=== PATIENT | male | born 1945 | race Caucasian/White ===

== ENCOUNTER 2022-03-01 18:59 | Inpatient (IN) ==
[2022-03-01 19:58] LABS: Hemoglobin 10.7 g/dL (14.0-18.0); Mean Corpuscular Hemoglobin 31.6 pg (25-34); Mean Corpuscular Hgb Conc 34.5 g/dL (32-36); Mean Corpuscular Volume 91.4 fL (80-100); Mean Platelet Volume 10.2 fL (7.4-10.4); Platelet Count 287 K/uL (130-400); RDW Coefficient of Variation 13.4 % (11.5-14.5); RDW Standard Deviation 44.9 fL (36.4-46.3); Red Blood Count 3.39 M/uL (4.7-6.1)
[2022-03-01 20:13] LABS: Basophils # (auto) 0.02 K/uL (0-0.2); Basophils % (auto) 0.1 %; Eosinophils # (auto) 0.01 K/uL (0-0.5); Immature Granulocytes # (auto) 0.15 K/uL (0.00-0.02); Immature Granulocytes % (auto) 0.7 %; Lymphocytes # (auto) 1.57 K/uL (1.2-3.4); Lymphocytes % (auto) 7.3 %; Monocytes # (auto) 1.16 K/uL (0.11-0.59); Monocytes % (auto) 5.4 %; Neutrophils # (auto) 18.49 K/uL (1.4-6.5); Neutrophils % (auto) 86.5 %; Polychromasia 1+
--- NOTE | 2022-03-01 20:18 | Emergency Department Note ---
History of Present Illness General Chief complaint: Fever Stated complaint: FEVER, CONGESTED Time Seen by Provider: 03/01/22 19:48 History of Present Illness This is a 76 yo male who presents with cough, sneezing, fever, dyspnea, and fatigue. Symptoms have been ongoing for several days. Patient and are tr aveling from out of town. THey became more concerned when fever started today. has not been ill. No known sick contacts. Denies chest pain, dizziness. He has had facial pressure and nasal congestion. He did try vicks and cough medicine which made him vomit. He states he is more short of breath with exertion and his cough is worse laying down. Patient denies any recent med change. Patient is on ASA and Eliquis for a.fib, he also has a hx of DM. No hx of asthma or COPD, no hx of tobacco abuse. Patient initially seen in conjunction with the family practice resident Dr. Pugh. Pt seen during a time of high acuity and national emergency pandemic while wearing PPE. Home Medications Medication Instructions Recorded Confirmed Type apixaban 5 mg tablet (Eliquis) 5 mg PO BID 03/01/22 03/01/22 History apple cider vinegar 500 mg tablet 500 mg PO DAILY 03/01/22 03/01/22 History aspirin 81 mg tablet,delayed 81 mg PO DAILY 03/01/22 03/01/22 History release escitalopram oxalate 20 mg tablet 20 mg PO DAILY 03/01/22 03/01/22 History glimepiride 4 mg tablet 4 mg PO BID 03/01/22 03/01/22 History omega 9-twl-egt-fish oil 1,000 mg 1 cap PO DAILY 03/01/22 03/01/22 History (120 mg-180 mg) capsule (Fish Oil) pioglitazone 30 mg tablet 30 mg PO DAILY 03/01/22 03/01/22 History rosuvastatin 20 mg tablet 20 mg PO HS 03/01/22 03/01/22 History sacubitril 24 mg-valsartan 26 mg 1 tab PO BID 03/01/22 03/01/22 History tablet (Entresto) Allergies Allergy/AdvReac Type Severity Reaction Status Date / Time pollen extracts Allergy Intermediate ITCHY Verified 03/01/22 21:40 EYES, SNEEZING, CONGESTION Past Med/Surg History Medical History Anemia of chronic disease Atrial fibrillation CKD (chronic kidney disease), stage III Depression Diabetes mellitus Hypertension Social History Smoking Status: Never smoker Hx Alcohol Use: Yes Hx Substance Use: No Preferred Language: Serbian Communication Ability: Effective Kiosk Sales Representative Required: No Beliefs That Will Affect Care: None marital status: Current Living Situation: Spouse How many Children do You have: 7 Feels Safe at Home: Yes Assistive Devices: None Review of Systems A total of 10 systems reviewed and were otherwise negative All systems reviewed & are unremarkable except as noted in HPI & below Physical Exam Vital Signs Vital Signs - 24 hr 03/01/22 19:02 Temperature 37.0 C Temperature Source Oral Pulse Rate 89 Respiratory Rate 16 Respiratory Effort / Characteristics Non-Labored Spontaneous Respiratory Depth Normal Blood Pressure 124/46 L Blood Pressure Mean 72 Blood Pressure Position Sitting Pulse Oximetry 94 Oxygen Delivery Method Room Air Sepsis Recent Fever Within 48 Hours Yes Sepsis New/Unexplained Change in Mental Status No Sepsis Action Taken by Nursing No Action Required GENERAL: alert, well appearing, well nourished, no distress, non-toxic EYE EXAM: normal conjunctiva, PERRL and EOM's grossly intact OROPHARYNX: no exudate, no erythema, lips, buccal mucosa, and tongue normal and mucous membranes are moist NECK: supple, no nuchal rigidity, no adenopathy, non-tender LUNGS: Clear to auscultation. Normal chest wall mechanics, no w/r/r HEART: no murmurs, S1 normal and S2 normal ABDOMEN: abdomen soft, non-tender, normo-active bowel sounds, no masses, no rebound or guarding. BACK: Back is symmetrical on inspection and there is no deformity, no midline tenderness, no CVA tenderness. SKIN: no rashes and no bruising UPPER EXTREMITIES: upper extremities are grossly normal. FROM, nml pulses b/l. LOWER EXTREMITIES: No pitting edema. FROM, nml pulses b/l. NEURO EXAM: Normal sensorium, cranial nerves II-XII grossly intact, normal speech, no gross weakness of arms, no gross weakness of legs. Gross sensation intact. Course Administered Medications Acetaminophen (Acetaminophen 325 Mg Tab) 650 mg PO Q4H PRN PRN Reason: Pain or Fever Stop: 04/01/22 02:01 Last Admin: 03/03/22 09:07 Dose: 650 mg Documented by: [id number] Admin: 03/02/22 23:03 Dose: 650 mg Documented by: [id number] Admin: 03/02/22 13:00 Dose: 650 mg Documented by: [id number] Apixaban (Apixaban 5 Mg Tablet) 5 mg PO BID SERG Stop: 04/01/22 02:01 Last Admin: 03/03/22 20:47 Dose: 5 mg Documented by: [id number] Admin: 03/03/22 08:05 Dose: 5 mg Documented by: [id number] Admin: 03/02/22 22:24 Dose: 5 mg Documented by: [id number] Admin: 03/02/22 08:20 Dose: 5 mg Documented by: [id number] Admin: 03/02/22 03:01 Dose: 5 mg Documented by: [id number] Aspirin (Aspirin 81 Mg Ectab) 81 mg PO DAILY SERG Stop: 04/01/22 08:59 Last Admin: 03/03/22 09:05 Dose: 81 mg Documented by: [id number] Admin: 03/02/22 08:20 Dose: 81 mg Documented by: [id number] Escitalopram Oxalate (Escitalopram Oxalate 20 Mg Tab) 20 mg PO DAILY SERG Stop: 04/01/22 08:59 Last Admin: 03/03/22 09:04 Dose: 20 mg Documented by: [id number] Admin: 03/02/22 08:20 Dose: 20 mg Documented by: [id number] Fish Oil (Conrad-3 (Purified Fish Oil) 1 Gm Cap) 1 gm PO DAILY SERG Stop: 04/01/22 08:59 Last Admin: 03/03/22 09:05 Dose: 1 gm Documented by: [id number] Admin: 03/02/22 08:20 Dose: 1 gm Documented by: [id number] Guaifenesin (Guaifenesin 600 Mg Tabcr) 1,200 mg PO Q12 SERG Stop: 04/01/22 08:59 Last Admin: 03/03/22 21:47 Dose: 1,200 mg Documented by: [id number] Admin: 03/03/22 09:05 Dose: 1,200 mg Documented by: [id number] Admin: 03/02/22 22:46 Dose: Not Given Documented by: [id number] Admin: 03/02/22 08:20 Dose: 1,200 mg Documented by: [id number] Hydrocodone Bit/Homatropine Methylb (Hydrocodone/Homatropine Syrup 5mg/1.5mg 5ml Udp) 5 ml PO Q8H PRN PRN Reason: Cough Stop: 03/17/22 19:45 Last Admin: 03/03/22 20:47 Dose: 5 ml Documented by: [id number] Azithromycin 500 mg/ Dextrose 255 mls @ 125 mls/hr IV Q24H SERG Stop: 03/09/22 21:59 Last Infusion: 03/03/22 23:47 Dose: 0 mls/hr Documented by: [id number] Admin: 03/03/22 21:48 Dose: 128 mls/hr Documented by: [id number] Infusion: 03/03/22 00:35 Dose: 0 mls/hr Documented by: [id number] Admin: 03/02/22 22:24 Dose: 125 mls/hr Documented by: [id number] Ceftriaxone Sodium 2,000 mg/ (Dextrose) 70 mls @ 100 mls/hr IV Q24H SERG; Protocol Stop: 03/09/22 19:59 Last Infusion: 03/03/22 21:48 Dose: 0 mls/hr Documented by: [id number] Admin: 03/03/22 20:48 Dose: 100 mls/hr Documented by: [id number] Infusion: 03/02/22 22:01 Dose: 0 mls/hr Documented by: [id number] Admin: 03/02/22 21:04 Dose: 100 mls/hr Documented by: [id number] Insulin Aspart (Insulin Aspart Per Unit) 0 units SC ACHS SERG Stop: 04/01/22 07:29 Last Admin: 03/03/22 20:58 Dose: Not Given Documented by: [id number] Admin: 03/03/22 16:58 Dose: 4 units Documented by: [id number] Cosigned by: [id number] Admin: 03/03/22 12:20 Dose: 2 units Documented by: [id number] Cosigned by: [id number] Admin: 03/03/22 08:18 Dose: Not Given Documented by: [id number] Cosigned by: [id number] Admin: 03/02/22 21:08 Dose: Not Given Documented by: [id number] Admin: 03/02/22 17:19 Dose: Not Given Documented by: [id number] Cosigned by: [id number] Admin: 03/02/22 12:29 Dose: Not Given Documented by: [id number] Cosigned by: [id number] Admin: 03/02/22 08:23 Dose: Not Given Documented by: [id number] Cosigned by: [id number] Melatonin (Melatonin 3 Mg Tab) 3 mg PO HS PRN PRN Reason: Sleep Stop: 04/01/22 02:26 Last Admin: 03/03/22 20:47 Dose: 3 mg Documented by: [id number] Admin: 03/02/22 20:59 Dose: 3 mg Documented by: [id number] Rosuvastatin Calcium (Rosuvastatin Calcium 20 Mg Tab) 20 mg PO HS SERG Stop: 04/01/22 20:59 Last Admin: 03/03/22 21:47 Dose: 20 mg Documented by: [id number] Admin: 03/02/22 22:23 Dose: 20 mg Documented by: [id number] Sacubitril/Valsartan (Valsartan/Sacubitril 26/24mg Tab) 1 tab PO BID [facility] Stop: 04/01/22 02:01 Last Admin: 03/02/22 02:40 Dose: Not Given Documented by: [id number] Discontinued Medications Acetaminophen (Acetaminophen 500 Mg Tab) 1,000 mg PO NOW STA Stop: 03/01/22 21:13 Last Admin: 03/01/22 21:18 Dose: 1,000 mg Documented by: [id number] Albuterol (Albut/Ipratrop 3mg/0.5mg Neb 3 Ml Vial) 3 ml [facility]B [facility]; Protocol Stop: 04/01/22 06:59 Last Admin: 03/02/22 07:09 Dose: 3 ml Documented by: [id number] Azithromycin (Azithromycin 250 Mg Tab) 500 mg PO NOW ONE Stop: 03/01/22 22:09 Last Admin: 03/01/22 22:39 Dose: 500 mg Documented by: [id number] Benzonatate (Benzonatate 100 Mg Capsule) 100 mg PO NOW ONE Stop: 03/01/22 21:13 Last Admin: 03/01/22 21:18 Dose: 100 mg Documented by: [id number] Hydrocodone Bit/Homatropine Methylb (Hydrocodone/Homatropine Syrup 5mg/1.5mg 5ml Udp) 5 ml PO NOW STA Stop: 03/02/22 19:52 Last Admin: 03/02/22 20:59 Dose: 5 ml Documented by: [id number] Ceftriaxone Sodium (Rocephin) 2,000 mg in 70 mls @ 140 mls/hr IV NOW STA Stop: 03/01/22 22:37 Last Infusion: 03/01/22 23:10 Dose: 0 mls/hr Documented by: [id number] Admin: 03/01/22 22:39 Dose: 140 mls/hr Documented by: [id number] Melatonin (Melatonin 3 Mg Tab) Confirm Administered Dose 3 mg PO .STK-MED ONE Stop: 03/02/22 03:00 Last Admin: 03/02/22 03:01 Dose: 3 mg Documented by: [id number] Medical Decision Making Differential Diagnosis Differential diagnosis: Etiologies such as viral syndrome, otitis, pharyngitis, pneumonia, influenza, meningitis, urinary tract infection, sepsis, bacteremia, as well as others were entertained. Medical Records Attestation: I reviewed the patient's medical records. Home Medications Current Medication List: was personally reviewed by me Laboratory Data Attestation: I reviewed the patient's lab results. Result diagrams: 03/03/22 07:38 03/03/22 07:38 Lab Results 03/01/22 03/01/22 03/01/22 Range/Units 19:48 19:48 19:48 WBC 21.40 H (4.8-10.8) K/uL RBC 3.39 L (4.7-6.1) M/uL Hgb 10.7 L (14.0-18.0) g/dL Hct 31.0 L (42-52) % MCV 91.4 (80-100) fL MCH 31.6 (25-34) pg MCHC 34.5 (32-36) g/dL RDW Std Deviation 44.9 (36.4-46.3) fL RDW Coeff of Vivian 13.4 (11.5-14.5) % Plt Count 287 (130-400) K/uL MPV 10.2 (7.4-10.4) fL Immature Gran % (Auto) 0.7 % Neut % (Auto) 86.5 % Lymph % (Auto) 7.3 % Horry % (Auto) 5.4 % Eos % (Auto) 0.0 % Baso % (Auto) 0.1 % Neut # (Auto) 18.49 H (1.4-6.5) K/uL Lymph # (Auto) 1.57 (1.2-3.4) K/uL Horry # (Auto) 1.16 H (0.11-0.59) K/uL Eos # (Auto) 0.01 (0-0.5) K/uL Baso # (Auto) 0.02 (0-0.2) K/uL Immature Gran # (Auto) 0.15 H (0.00-0.02) K/uL Polychromasia 1+ Sodium 129 L (136-145) mmol/L Potassium 4.6 (3.5-5.1) mmol/L Chloride 99 (98-107) mmol/L Carbon Dioxide 21 (21-32) mmol/L Anion Gap 9 (3-11) BUN 52 H (6-23) mg/dl Creatinine 2.50 H (0.6-1.4) mg/dl Est Cr Clr Drug Dosing 30.5 ml/min Est GFR ( Amer) 27.5 ml/min Est GFR (Non-Af Amer) 23.7 ml/min BUN/Creatinine Ratio 20.8 H (10-20) Glucose 233 H (70-99(Fasting)) mg/dl Osmolality (280-300) mOsm/kg Calcium 8.3 L (8.5-10.1) mg/dl Total Bilirubin 0.5 (0.2-1.0) mg/dl AST 30 (13-39) U/L ALT 17 (7-52) U/L Alkaline Phosphatase 74 (34-104) U/L Troponin I High Sens (0-20) pg/ml Total Protein 6.9 (6.0-8.3) gm/dl Albumin 3.2 L (3.4-5.0) gm/dl Globulin 3.7 (2.5-4.0) gm/dl Albumin/Globulin Ratio 0.9 (0.9-2) Procalcitonin 0.97 H (0-0.5) ng/ml Adenovirus (PCR) (NotDetected) Anaplasma Smear B. pertussis DNA (PCR) (NotDetected) B.parapertussis DNA PCR (NotDetected) C. pneumoniae DNA (PCR) (NotDetected) Coronavirus OC43 (PCR) (NotDetected) Coronavirus HKU1 (PCR) (NotDetected) Coronavirus 229E (PCR) (NotDetected) SARS-CoV-2 (PCR) (NotDetected) Coronavirus NL63 (PCR) (NotDetected) H. influenzae (PCR) (NotDetected) Human Metapneumovir PCR (NotDetected) Influenza Type A (PCR) (NotDetected) Influenza Type B (PCR) (NotDetected) M. pneumoniae (PCR) (NotDetected) Parainfluenza 1 (PCR) (NotDetected) Parainfluenza 2 (PCR) (NotDetected) Parainfluenza 3 (PCR) (NotDetected) Parainfluenza 4 (PCR) (NotDetected) RSV (PCR) (NotDetected) Entero/Rhino (PCR) (NotDetected) Bld Cult ID Panel PCR (NotDetected) 03/01/22 03/01/22 03/01/22 Range/Units 19:48 19:48 20:44 WBC (4.8-10.8) K/uL RBC (4.7-6.1) M/uL Hgb (14.0-18.0) g/dL Hct (42-52) % MCV (80-100) fL MCH (25-34) pg MCHC (32-36) g/dL RDW Std Deviation (36.4-46.3) fL RDW Coeff of Vivian (11.5-14.5) % Plt Count (130-400) K/uL MPV (7.4-10.4) fL Immature Gran % (Auto) % Neut % (Auto) % Lymph % (Auto) % [place] % (Auto) % Eos % (Auto) % Baso % (Auto) % Neut # (Auto) (1.4-6.5) K/uL Lymph # (Auto) (1.2-3.4) K/uL [place] # (Auto) (0.11-0.59) K/uL Eos # (Auto) (0-0.5) K/uL Baso # (Auto) (0-0.2) K/uL Immature Gran # (Auto) (0.00-0.02) K/uL Polychromasia Sodium (136-145) mmol/L Potassium (3.5-5.1) mmol/L Chloride (98-107) mmol/L Carbon Dioxide (21-32) mmol/L Anion Gap (3-11) BUN (6-23) mg/dl Creatinine (0.6-1.4) mg/dl Est Cr Clr Drug Dosing ml/min Est GFR ( Amer) ml/min Est GFR (Non-Af Amer) ml/min BUN/Creatinine Ratio (10-20) Glucose (70-99(Fasting)) mg/dl Osmolality (280-300) mOsm/kg Calcium (8.5-10.1) mg/dl Total Bilirubin (0.2-1.0) mg/dl AST (13-39) U/L ALT (7-52) U/L Alkaline Phosphatase (34-104) U/L Troponin I High Sens 47.7 H (0-20) pg/ml Total Protein (6.0-8.3) gm/dl Albumin (3.4-5.0) gm/dl Globulin (2.5-4.0) gm/dl Albumin/Globulin Ratio (0.9-2) Procalcitonin (0-0.5) ng/ml Adenovirus (PCR) Not Detected (NotDetected) Anaplasma Smear See Comment B. pertussis DNA (PCR) Not Detected (NotDetected) B.parapertussis DNA PCR Not Detected (NotDetected) C. pneumoniae DNA (PCR) Not Detected (NotDetected) Coronavirus OC43 (PCR) Not Detected (NotDetected) Coronavirus HKU1 (PCR) Not Detected (NotDetected) Coronavirus 229E (PCR) Not Detected (NotDetected) SARS-CoV-2 (PCR) Not Detected (NotDetected) Coronavirus NL63 (PCR) Not Detected (NotDetected) H. influenzae (PCR) (NotDetected) Human Metapneumovir PCR Not Detected (NotDetected) Influenza Type A (PCR) Not Detected (NotDetected) Influenza Type B (PCR) Not Detected (NotDetected) M. pneumoniae (PCR) Not Detected (NotDetected) Parainfluenza 1 (PCR) Not Detected (NotDetected) Parainfluenza 2 (PCR) Not Detected (NotDetected) Parainfluenza 3 (PCR) Not Detected (NotDetected) Parainfluenza 4 (PCR) Not Detected (NotDetected) RSV (PCR) Not Detected (NotDetected) Entero/Rhino (PCR) Not Detected (NotDetected) Bld Cult ID Panel PCR (NotDetected) 03/01/22 03/01/22 03/01/22 Range/Units 21:30 21:47 21:54 WBC (4.8-10.8) K/uL RBC (4.7-6.1) M/uL Hgb (14.0-18.0) g/dL Hct (42-52) % MCV (80-100) fL MCH (25-34) pg MCHC (32-36) g/dL RDW Std Deviation (36.4-46.3) fL RDW Coeff of Vivian (11.5-14.5) % Plt Count (130-400) K/uL MPV (7.4-10.4) fL Immature Gran % (Auto) % Neut % (Auto) % Lymph % (Auto) % [place] % (Auto) % Eos % (Auto) % Baso % (Auto) % Neut # (Auto) (1.4-6.5) K/uL Lymph # (Auto) (1.2-3.4) K/uL [place] # (Auto) (0.11-0.59) K/uL Eos # (Auto) (0-0.5) K/uL Baso # (Auto) (0-0.2) K/uL Immature Gran # (Auto) (0.00-0.02) K/uL Polychromasia Sodium (136-145) mmol/L Potassium (3.5-5.1) mmol/L Chloride (98-107) mmol/L Carbon Dioxide (21-32) mmol/L Anion Gap (3-11) BUN (6-23) mg/dl Creatinine (0.6-1.4) mg/dl Est Cr Clr Drug Dosing ml/min Est GFR ( Amer) ml/min Est GFR (Non-Af Amer) ml/min BUN/Creatinine Ratio (10-20) Glucose (70-99(Fasting)) mg/dl Osmolality 292 (280-300) mOsm/kg Calcium (8.5-10.1) mg/dl Total Bilirubin (0.2-1.0) mg/dl AST (13-39) U/L ALT (7-52) U/L Alkaline Phosphatase (34-104) U/L Troponin I High Sens 44.7 H (0-20) pg/ml Total Protein (6.0-8.3) gm/dl Albumin (3.4-5.0) gm/dl Globulin (2.5-4.0) gm/dl Albumin/Globulin Ratio (0.9-2) Procalcitonin (0-0.5) ng/ml Adenovirus (PCR) (NotDetected) Anaplasma Smear B. pertussis DNA (PCR) (NotDetected) B.parapertussis DNA PCR (NotDetected) C. pneumoniae DNA (PCR) (NotDetected) Coronavirus OC43 (PCR) (NotDetected) Coronavirus HKU1 (PCR) (NotDetected) Coronavirus 229E (PCR) (NotDetected) SARS-CoV-2 (PCR) (NotDetected) Coronavirus NL63 (PCR) (NotDetected) H. influenzae (PCR) DETECTED A (NotDetected) Human Metapneumovir PCR (NotDetected) Influenza Type A (PCR) (NotDetected) Influenza Type B (PCR) (NotDetected) M. pneumoniae (PCR) (NotDetected) Parainfluenza 1 (PCR) (NotDetected) Parainfluenza 2 (PCR) (NotDetected) Parainfluenza 3 (PCR) (NotDetected) Parainfluenza 4 (PCR) (NotDetected) RSV (PCR) (NotDetected) Entero/Rhino (PCR) (NotDetected) Bld Cult ID Panel PCR See PCR Comment (NotDetected) Imaging Data Radiologist's Impression: XR chest 1V portable CLINICAL HISTORY: Fever. COMPARISON STUDY: No previous studies for comparison. FINDINGS: Lung volumes are normal. No pneumothorax or pleural effusion is noted. There is moderate cardiomegaly without evidence for pulmonary edema. Patchy asymmetric left lung airspace opacities are present. IMPRESSION: 1. Asymmetric left lung airspace opacities suggestive of pneumonia. Radiographic follow-up to ensure resolution is recommended. 2. Cardiomegaly without evidence for pulmonary edema. ACT 112: Negative or not required by law. Electronically signed by: Aamir Herrera M.D. 03/01/2022 8:41 PM ECG Data Attestation: I personally reviewed and interpreted this ECG as follows: Indication: + SOB/dyspnea Rate (beats per minute): 90 Rhythm: + atrial fibrillation ECG Intervals/blocks: + Normal QRS and + Normal QT ECG [place]: + Normal ECG ST segments: + Nonspecific ST abnormalities ECG Findings: + PVCs MDM Narrative An order was placed for continuous cardiac monitoring. The monitor shows a rate of _88__ with _a.fib__ rhythm. THis is a 76 yo male who presents with cough, dyspnea, and fever. Labs with leukocytosis, elevated procalcitonin, and hyponatremia. Patient also had elevated troponin and ROSIO. VS stable. CXR with pneumonia. Patient started on IVF and covered with antibiotics for CAP. [employer] sent also. All results discussed with patient and . They verbalized understanding and were in agreement with plan for additional inpatient monitoring. No hypoxia while in the ER. Impression & Plan Dyspnea, Pneumonia, Hyponatremia, ROSIO (acute kidney injury) Discharge Plan Visit Data Chief Complaint: Fever Stated Complaint: FEVER, CONGESTED ED Midlevel Provider: Amrik Wray Discharge Problem: Dyspnea, Pneumonia, Hyponatremia, ROSIO (acute kidney injury) Patient Disposition: Admitted As Inpatient Discharge Instructions Interventions: ED Discharge Assessment Last Done: 03/02/22 01:38 Discharge Problem: Dyspnea Qualifiers: Dyspnea type: shortness of breath Qualified Code(s): R06.02 - Shortness of breath Pneumonia Qualifiers: Pneumonia type: due to unspecified organism Laterality: left Lung location: unspecified part of lung Qualified Code(s): J18.9 - Pneumonia, unspecified organism
[2022-03-01 20:25] LABS: Albumin Globulin Ratio 0.9 (0.9-2); Albumin Level 3.2 gm/dl (3.4-5.0); BUN Creatinine Ratio 20.8 (10-20); Bilirubin,Total 0.5 mg/dl (0.2-1.0); Calcium 8.3 mg/dl (8.5-10.1); Creatinine Clr Calc Pharmacy 30.5 ml/min; Est GFR (African American) 27.5 ml/min; Est GFR (Non-African American) 23.7 ml/min; Globulin 3.7 gm/dl (2.5-4.0); Potassium 4.6 mmol/L (3.5-5.1); Total Protein 6.9 gm/dl (6.0-8.3)
--- NOTE | 2022-03-01 20:42 | XRay Report ---
XR chest 1V portable CLINICAL HISTORY: Fever. COMPARISON STUDY: No previous studies for comparison. FINDINGS: Lung volumes are normal. No pneumothorax or pleural effusion is noted. There is moderate ca rdiomegaly without evidence for pulmonary edema. Patchy asymmetric left lung airspace opacities are p resent. IMPRESSION: 1. Asymmetric left lung airspace opacities suggestive of pneumonia. Radiographic follow-up to ensure resolution is recommended. 2. Cardiomegaly without evidence for pulmonary edema. ACT 112: Negative or not required by law. Electronically signed by: Aamir Herrera M.D. 03/01/2022 8:41 PM
[2022-03-01] MEDS ORDERED: BENZONATATE 100 MG CAPSULE PO ONE (21:12)
[2022-03-01] MEDS ORDERED: ACETAMINOPHEN 500 MG TAB PO STA (21:12)
[2022-03-01 21:54] LABS: Adenovirus PCR Not Detected (NotDetected); Bordetella parapertussis PCR Not Detected (NotDetected); Bordetella pertussis PCR Not Detected (NotDetected); Chlamydia pneumoniae PCR Not Detected (NotDetected); Coronavirus 229E PCR Not Detected (NotDetected); Coronavirus CoV-2 (COVID19)PCR Not Detected (NotDetected); Coronavirus HKU1 PCR Not Detected (NotDetected); Coronavirus NL63 PCR Not Detected (NotDetected); Coronavirus OC43PCR Not Detected (NotDetected); Human Metapneumovirus PCR Not Detected (NotDetected); Influenza A PCR Not Detected (NotDetected); Influenza B PCR Not Detected (NotDetected); Mycoplasma pneumoniae PCR Not Detected (NotDetected); Parainfluenza Virus 1 PCR Not Detected (NotDetected); Parainfluenza Virus 2 PCR Not Detected (NotDetected); Parainfluenza Virus 3 PCR Not Detected (NotDetected); Parainfluenza Virus 4 PCR Not Detected (NotDetected); Respiratory Syncytial VirusPCR Not Detected (NotDetected); Rhinovirus/Enterovirus PCR Not Detected (NotDetected)
[2022-03-01] MEDS ORDERED: cefTRIAXone SODIUM 2,000 MG/70 ML BAG IV STA (22:08)
[2022-03-01] MEDS ORDERED: AZITHROMYCIN 250 MG TAB PO ONE (22:08)
--- NOTE | 2022-03-01 23:12 | History & Physical Report ---
Date of Service March 01, 2022 Assessment & Plan (1) Pneumonia: Plan: Ceftriaxone 2 g IV daily Azithromycin 500 mg IV daily Duonebs every 4 hours while awake and every 2 hours when necessary. Guaifenesin extended release 12 mg p.o. twice daily (2) Elevated troponin: Plan: Elevated troponin/hypertension/atrial fibrillation- Highly sensitive troponin minimally elevated at 47.7, with follow-up 44.7. We will repeat in a.m. Continue apixaban Hold Entresto due to ROSIO on CKD (3) Atrial fibrillation: Plan: See above (4) Hypertension: Plan: See above (5) Diabetes mellitus: Plan: Hold glimepiride and pioglitazone Place on Accu-Cheks before meals and at bedtime NovoLog coverage per scale (6) Acute kidney injury superimposed on CKD: Plan: Creatinine 2.50 on admission, with patient reporting it usually around 1.7 Hold Entresto overnight reassess labs in a.m. Reports decreased oral intake over the past 4 days, which is likely contributing (7) CKD (chronic kidney disease), stage III: Plan: See above (8) Hyponatremia: Plan: Likely associated with decreased oral intake and reassess in a.m. (9) Depression: Plan: Continue escitalopram History of Present Illness Chief Complaint: The patient presents to the emergency department with complaint of 2 weeks of dry cough, shortness of breath, fatigue, facial pressure and today developed a temperature of 100.8 Primary Care Provider: NO PCP The patient is a 76-year-old male with a past medical history including atrial fibrillation, diabetes mellitus, hyperlipidemia, hypertension and depression. He presently is camping, denies any tick or other insect bites, presents with the symptoms as noted above. Work-up in the emergency department includes the following abnormal laboratories: WBC 21.40, hemoglobin 10.7, hematocrit 31.0, sodium 129, creatinine 2.50, BUN 52, glucose 233, highly sensitive troponin initially 47.7 and follow-up 44.7. Chest x-ray suggestive of left lower lobe pneumonia. Bio fire testing is negative, Lyme test is negative, anaplasmosis smear is negative with antibody testing pending Allergies Allergy/AdvReac Type Severity Reaction Status Date / Time pollen extracts Allergy Intermediate ITCHY Verified 03/01/22 21:40 EYES, SNEEZING, CONGESTION Home Medications Medication Instructions Recorded Confirmed Type apixaban 5 mg tablet (Eliquis) 5 mg PO BID 03/01/22 03/01/22 History apple cider vinegar 500 mg tablet 500 mg PO DAILY 03/01/22 03/01/22 History aspirin 81 mg tablet,delayed 81 mg PO DAILY 03/01/22 03/01/22 History release escitalopram oxalate 20 mg tablet 20 mg PO DAILY 03/01/22 03/01/22 History glimepiride 4 mg tablet 4 mg PO BID 03/01/22 03/01/22 History omega 2-mqi-rwh-fish oil 1,000 mg 1 cap PO DAILY 03/01/22 03/01/22 History (120 mg-180 mg) capsule (Fish Oil) pioglitazone 30 mg tablet 30 mg PO DAILY 03/01/22 03/01/22 History rosuvastatin 20 mg tablet 20 mg PO HS 03/01/22 03/01/22 History sacubitril 24 mg-valsartan 26 mg 1 tab PO BID 03/01/22 03/01/22 History tablet (Entresto) Past Med/Surg History Medical History (Updated 03/02/22 @ 01:49 by Dinh Kwon MD) Anemia of chronic disease Atrial fibrillation CKD (chronic kidney disease), stage III Depression Diabetes mellitus Hypertension Social History Smoking Status: Never smoker Preferred Language: Malay Feels Safe at Home: Yes Review of Systems Review of Systems: The patient denies chest pain, palpitations, lower extremity swelling, sore throat, fevers, chills, sweats, nausea, vomiting, diarrhea , constipation, abdominal pain, pelvic pain, blood in urine or stool, dysuria, urinary frequency or urgency, lightheadedness, dizziness, headache, memory loss, loss of consciousness, rash, abnormal bruising or bleeding, imbalance, focal or generalized weakness, numbness or tingling in arms or legs, generalized arthralgias or myalgias, back or neck pain, or night sweats. The review of systems is otherwise negative other than for that already noted above, and at least 10 systems have been reviewed. Physical Exam Physical Exam: The patient is awake, alert and oriented 3, well developed and well nourished, normocephalic and atraumatic, lying in bed and in no acute distress. HEENT--PERRL, EOMI, mucous membranes and oropharynx normal. Neck--supple. No JVD. No bruits. Thyroid normal, trachea midline, no adenopathy. Heart--normal S1 and S2. No murmurs, rubs or gallops. Lungs--clear bilaterally, no respiratory distress, no accessory muscle use. Abdomen--normal bowel sounds and soft. Nontender. Nondistended, no hernias or masses, no organomegaly. Extremities--no cyanosis or clubbing. No edema. There are good distal pulses b/l. Dermatologic--normal skin turgor, normal color, no abnormal lymph nodes, no rash. Neurologic--cranial nerves II through XII grossly intact. Rheumatologic--normal range of motion. Psychiatric--normal affect. Results & Data Results & Data ([facility]) Vital Signs (Past 12 Hours) Vital Signs Temp Pulse Resp BP BP Pulse Ox 03/01/22 20:44 143/73 H 03/01/22 20:43 60 18 95 03/01/22 19:02 37.0 C 89 16 124/46 L 94 Laboratory Results Laboratory Results WBC 21.40 K/uL (4.8-10.8) H 03/01/22 19:48 RBC 3.39 M/uL (4.7-6.1) L 03/01/22 19:48 Hgb 10.7 g/dL (14.0-18.0) L 03/01/22 19:48 Hct 31.0 % (42-52) L 03/01/22 19:48 MCV 91.4 fL (80-100) 03/01/22 19:48 MCH 31.6 pg (25-34) 03/01/22 19:48 MCHC 34.5 g/dL (32-36) 03/01/22 19:48 RDW Std Deviation 44.9 fL (36.4-46.3) 03/01/22 19:48 RDW Coeff of Vivian 13.4 % (11.5-14.5) 03/01/22 19:48 Plt Count 287 K/uL (130-400) 03/01/22 19:48 MPV 10.2 fL (7.4-10.4) 03/01/22 19:48 Immature Gran % (Auto) 0.7 % 03/01/22 19:48 Neut % (Auto) 86.5 % 03/01/22 19:48 Lymph % (Auto) 7.3 % 03/01/22 19:48 Bleckley % (Auto) 5.4 % 03/01/22 19:48 Eos % (Auto) 0.0 % 03/01/22 19:48 Baso % (Auto) 0.1 % 03/01/22 19:48 Neut # (Auto) 18.49 K/uL (1.4-6.5) H 03/01/22 19:48 Lymph # (Auto) 1.57 K/uL (1.2-3.4) 03/01/22 19:48 Bleckley # (Auto) 1.16 K/uL (0.11-0.59) H 03/01/22 19:48 Eos # (Auto) 0.01 K/uL (0-0.5) 03/01/22 19:48 Baso # (Auto) 0.02 K/uL (0-0.2) 03/01/22 19:48 Immature Gran # (Auto) 0.15 K/uL (0.00-0.02) H 03/01/22 19:48 Polychromasia 1+ 03/01/22 19:48 Sodium 129 mmol/L (136-145) L 03/01/22 19:48 Potassium 4.6 mmol/L (3.5-5.1) 03/01/22 19:48 Chloride 99 mmol/L (98-107) 03/01/22 19:48 Carbon Dioxide 21 mmol/L (21-32) 03/01/22 19:48 Anion Gap 9 (3-11) 03/01/22 19:48 BUN 52 mg/dl (6-23) H 03/01/22 19:48 Creatinine 2.50 mg/dl (0.6-1.4) H 03/01/22 19:48 Est Cr Clr Drug Dosing 30.5 ml/min 03/01/22 19:48 Est GFR ( Amer) 27.5 ml/min 03/01/22 19:48 Est GFR (Non-Af Amer) 23.7 ml/min 03/01/22 19:48 BUN/Creatinine Ratio 20.8 (10-20) H 03/01/22 19:48 Glucose 233 mg/dl (70-99(Fasting)) H 03/01/22 19:48 Osmolality 292 mOsm/kg (280-300) 03/01/22 21:54 Calcium 8.3 mg/dl (8.5-10.1) L 03/01/22 19:48 Total Bilirubin 0.5 mg/dl (0.2-1.0) 03/01/22 19:48 AST 30 U/L (13-39) 03/01/22 19:48 ALT 17 U/L (7-52) 03/01/22 19:48 Alkaline Phosphatase 74 U/L (34-104) 03/01/22 19:48 Troponin I High Sens 44.7 pg/ml (0-20) H 03/01/22 21:30 Total Protein 6.9 gm/dl (6.0-8.3) 03/01/22 19:48 Albumin 3.2 gm/dl (3.4-5.0) L 03/01/22 19:48 Globulin 3.7 gm/dl (2.5-4.0) 03/01/22 19:48 Albumin/Globulin Ratio 0.9 (0.9-2) 03/01/22 19:48 Procalcitonin 0.97 ng/ml (0-0.5) H 03/01/22 19:48 Urine Osmolality 376 mOsm/kg (500-800) L 03/01/22 23:31 Ur Random Sodium 26 mmol/L 03/01/22 23:31 Adenovirus (PCR) Not Detected (NotDetected) 03/01/22 20:44 Anaplasma Smear See Comment 03/01/22 19:48 B. pertussis DNA (PCR) Not Detected (NotDetected) 03/01/22 20:44 B.parapertussis DNA PCR Not Detected (NotDetected) 03/01/22 20:44 Lyme Disease IgG Ab Negative (Negative) 03/01/22 23:22 Lyme Disease IgM Ab Negative (Negative) 03/01/22 23:22 C. pneumoniae DNA (PCR) Not Detected (NotDetected) 03/01/22 20:44 Coronavirus OC43 (PCR) Not Detected (NotDetected) 03/01/22 20:44 Coronavirus HKU1 (PCR) Not Detected (NotDetected) 03/01/22 20:44 Coronavirus 229E (PCR) Not Detected (NotDetected) 03/01/22 20:44 SARS-CoV-2 (PCR) Not Detected (NotDetected) 03/01/22 20:44 Coronavirus NL63 (PCR) Not Detected (NotDetected) 03/01/22 20:44 Human Metapneumovir PCR Not Detected (NotDetected) 03/01/22 20:44 Influenza Type A (PCR) Not Detected (NotDetected) 03/01/22 20:44 Influenza Type B (PCR) Not Detected (NotDetected) 03/01/22 20:44 M. pneumoniae (PCR) Not Detected (NotDetected) 03/01/22 20:44 Parainfluenza 1 (PCR) Not Detected (NotDetected) 03/01/22 20:44 Parainfluenza 2 (PCR) Not Detected (NotDetected) 03/01/22 20:44 Parainfluenza 3 (PCR) Not Detected (NotDetected) 03/01/22 20:44 Parainfluenza 4 (PCR) Not Detected (NotDetected) 03/01/22 20:44 RSV (PCR) Not Detected (NotDetected) 03/01/22 20:44 Entero/Rhino (PCR) Not Detected (NotDetected) 03/01/22 20:44 Impressions Chest X-Ray 03/01/22 19:07 XR chest 1V portable CLINICAL HISTORY: Fever. COMPARISON STUDY: No previous studies for comparison. FINDINGS: Lung volumes are normal. No pneumothorax or pleural effusion is noted. There is moderate cardiomegaly without evidence for pulmonary edema. Patchy asymmetric left lung airspace opacities are present. IMPRESSION: 1. Asymmetric left lung airspace opacities suggestive of pneumonia. Radiographic follow-up to ensure resolution is recommended. 2. Cardiomegaly without evidence for pulmonary edema. ACT 112: Negative or not required by law. Electronically signed by: Aamir Herrera M.D. 03/01/2022 8:41 PM Code Status & VTE Plan Code Status Full code VTE Prophylaxis Plan VTE Prophylaxis will be ordered: Yes PG Care Time/CCT Total # of Minutes Spent Total Time Spent with Patient: Total time spent is greater than 50% in coordination of care (as documented) at patient's floor/unit and/or counseling patient: Coding Level of Care Code 78992 Initial In Care Lvl 3 Diagnoses Elevated troponin R77.8 Atrial fibrillation I48.91 Hypertension I10 Diabetes mellitus E11.9 CKD (chronic kidney disease), stage III N18.30 Acute kidney injury superimposed on CKD N17.9; N18.9 Pneumonia J18.9 Hyponatremia E87.1 Depression F32.A
[2022-03-02 00:53] LABS: Lyme Ab IgG w/WB Rflx Negative (Negative)
[2022-03-02 00:55] LABS: Lyme Ab IgM w/WB Rflx Negative (Negative)
[2022-03-02] MEDS ORDERED: GLUCOSE 40% GEL 15 GM TUBE PO PRN (02:02)
[2022-03-02] MEDS ORDERED: DEXTROSE 50% 50 ML SYRINGE IV PRN (02:02)
[2022-03-02] MEDS ORDERED: CARBOHYDRATES FOR HYPOGLYCEMIA PO PRN (02:02)
[2022-03-02] MEDS ORDERED: VALSARTAN/SACUBITRIL 26/24MG TAB PO SCH (02:02)
[2022-03-02] MEDS ORDERED: ONDANSETRON INJ 2 MG/ML 2 ML VIAL IV PRN (02:02)
[2022-03-02] MEDS ORDERED: GLUCAGON FOR INJ 1 MG VIAL SQ PRN (02:02)
[2022-03-02] MEDS ORDERED: GLUCOSE 10 TABS/TUBE PO PRN (02:02)
[2022-03-02] MEDS ORDERED: MELATONIN 3 MG TAB PO ONE (02:59)
[2022-03-02] MEDS: APIXABAN 5 MG TABLET PO SCH ×3 (03:01→22:24)
[2022-03-02] MEDS ORDERED: ALBUT/IPRATROP 3MG/0.5MG NEB 3 ML VIAL NEB SCH (07:00)
[2022-03-02] MEDS: ESCITALOPRAM OXALATE 20 MG TAB PO SCH (08:20)
[2022-03-02] MEDS: OMEGA-3 (PURIFIED FISH OIL) 1 GM CAP PO SCH (08:20)
[2022-03-02] MEDS: ASPIRIN 81 MG ECTAB PO SCH (08:20)
[2022-03-02] MEDS: guaiFENesin 600 MG TABCR PO SCH ×2 (08:20→22:46)
[2022-03-02] MEDS: INSULIN ASPART PER UNIT SC SCH ×4 (08:23→21:08)
[2022-03-02 08:24] LABS: Mean Corpuscular Hgb Conc 33.1 g/dL (32-36); Mean Platelet Volume 10.3 fL (7.4-10.4); Platelet Count 303 K/uL (130-400)
[2022-03-02 08:26] LABS: BUN Creatinine Ratio 22.2 (10-20); Calcium 8.2 mg/dl (8.5-10.1); Creatinine Clr Calc Pharmacy 31.4 ml/min; Est GFR (African American) 28.4 ml/min; Est GFR (Non-African American) 24.5 ml/min; Phosphorus 3.2 mg/dl (2.5-4.9); Potassium 4.2 mmol/L (3.5-5.1)
[2022-03-02 09:04] LABS: Hematocrit (blood only) 30.2 % (42-52); Mean Corpuscular Hemoglobin 29.9 pg (25-34); Mean Corpuscular Volume 90.1 fL (80-100); RDW Coefficient of Variation 13.6 % (11.5-14.5); RDW Standard Deviation 45.1 fL (36.4-46.3); Red Blood Count 3.35 M/uL (4.7-6.1); White Blood Count 21.66 K/uL (4.8-10.8)
[2022-03-02 09:05] LABS: ALC (manual) 0.37 K/uL (1.2-3.4); ANC (manual) 19.97 K/uL (1.4-6.5); Echinocytes 1+; Lymphocytes # (manual) 0.37 K/uL (1.2-3.4); Lymphocytes % (manual) 1.7 %; Monocytes # (manual) 1.32 K/uL (0.11-0.59); Monocytes % (manual) 6.1 %; Neutrophils # (manual) 19.97 K/uL (1.4-6.5); Neutrophils % (manual) 92.2 %
[2022-03-02 09:07] LABS: Estimated Average Glucose 166 mg/dl; Hemoglobin A1C 7.4 % (4.5-5.6)
[2022-03-02] MEDS ORDERED: ALBUT/IPRATROP 3MG/0.5MG NEB 3 ML VIAL NEB PRN (09:31)
--- NOTE | 2022-03-02 10:27 | Cardiology Consultation ---
Date of Consultation March 02, 2022 Assessment & Plan (1) Elevated troponin: -very minor elevation likely a supply demand mismatch. -no need for intravenous heparin. -no further cardiac evaluation necessary. (2) Atrial fibrillation: -tolerating long-term anticoagulation without difficulty. -does not require rate controlling medications. (3) Hypertension: -well controlled on current regimen. (4) Hypercholesterolemia: -continue rosuvastatin. History of Present Illness Attending Physician: Dylon Duncan History of Present Illness Mr. Anderson is a 76-year-old male admitted yesterday with a left lower pneumo susie and a very mildly elevated sensitivity troponin. This consultation was ordered to assist in his cardiac management. Patient was in his usual state health until approximately 2 weeks prior to pre sentation. He developed a nonproductive cough and symptoms of an upper respiratory infection. On the day of presentation, patient noticed a fever, therefore, presented to the emergency room for further care. Evaluation here noted a left lower lobe pneumonia and rate controlled atrial fibrillation. As above, his high sensitivity troponin was very mildly elevated. The patient carries a history of permanent atrial fibrillation and is maintained on long-term anticoagulation. He does not require rate controlling medications. 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 He has never had a cardiac catheterization. He did have a normal stress test many years ago. He has never experienced exertional chest pain. He further denies syncope, presyncope, PND, orthopnea, palpitations, lower extremity edema, and claudication. Currently, patient is resting comfortably in bed without complaints. Past medical and surgical history 1. Hypertension 2. Hypercholesterolemia 3. Permanent atrial fibrillation 4. Diabetes mellitus 5. Chronic renal failure 6. Anemia of chronic disease 7. Depression Social history and lives with his and [facility]. Works at [place] [employer]. Does not smoke Occasional alcohol Family history No early coronary artery disease Review of systems A 10 review systems was undertaken and negative except for that described above. Allergies Allergy/AdvReac Type Severity Reaction Status Date / Time pollen extracts Allergy Intermediate ITCHY Verified 03/01/22 21:40 EYES, SNEEZING, CONGESTION Home Medications Medication Instructions Recorded Confirmed Type apixaban 5 mg tablet (Eliquis) 5 mg PO BID 03/01/22 03/01/22 History apple cider vinegar 500 mg tablet 500 mg PO DAILY 03/01/22 03/01/22 History aspirin 81 mg tablet,delayed 81 mg PO DAILY 03/01/22 03/01/22 History release escitalopram oxalate 20 mg tablet 20 mg PO DAILY 03/01/22 03/01/22 History glimepiride 4 mg tablet 4 mg PO BID 03/01/22 03/01/22 History omega 1-dly-oou-fish oil 1,000 mg 1 cap PO DAILY 03/01/22 03/01/22 History (120 mg-180 mg) capsule (Fish Oil) pioglitazone 30 mg tablet 30 mg PO DAILY 03/01/22 03/01/22 History rosuvastatin 20 mg tablet 20 mg PO HS 03/01/22 03/01/22 History sacubitril 24 mg-valsartan 26 mg 1 tab PO BID 03/01/22 03/01/22 History tablet (Entresto) Patient History Medical History (Updated 03/02/22 @ 10:24 by Danny Dejesus MD) Anemia of chronic disease Atrial fibrillation CKD (chronic kidney disease), stage III Depression Diabetes mellitus Hypertension Social History Smoking Status: Never smoker Hx Alcohol Use: Yes Hx Substance Use: No Preferred Language: Kazakh Communication Ability: Effective Director Weights And Measures Required: No Beliefs That Will Affect Care: None Current Living Situation: Spouse Feels Safe at Home: Yes Assistive Devices: Glasses Physical Exam Physical Exam: In general this is a well-developed well-nourished white male in no acute distress. HEENT exam is negative. Neck is supple with full carotid upstrokes. There are no carotid bruits. Jugular venous pressure is flat at 90. There is no thyromegaly. Cardiovascular exam reveals an irregularly irregular rhythm with distant heart sounds. No S3 or murmurs are noted. Lungs are clear without rales, rhonchi, or wheezes. Abdomen is soft and nontender without bruits. Extremities reveal intact radial artery and posterior tibial pulses bilaterally. There is no peripheral edema. Results & Data ([facility]) Vital Signs (Past 12 Hours) Vital Signs Temp Pulse Pulse Resp BP BP BP 03/02/22 07:39 37.0 C 62 20 105/55 L 03/02/22 07:10 73 18 03/02/22 04:26 37.1 C 67 20 151/71 H 03/02/22 02:00 36.5 C 71 19 132/77 03/02/22 01:38 64 18 141/73 H 03/02/22 00:44 60 18 148/70 H 03/01/22 22:44 57 L 18 139/66 Pulse Ox 03/02/22 07:39 94 03/02/22 07:10 92 03/02/22 04:26 96 03/02/22 02:00 94 03/02/22 01:38 94 03/02/22 00:44 95 03/01/22 22:44 96 Laboratory Results CBC notes hemoglobin of 10.0, hematocrit 30.2, white count 21.6, and platelet count [id number]. Electrolytes note a sodium of 132, potassium 4.2, chloride 102, bicarb 21, BUN 54, creatinine 2.43, and glucose of 87. High sensitivity troponin was 47.7 presentation with a follow-up value 44.7. Lyme titers are negative. Anaplasmosis smear is negative. Diagnostic Findings EKG notes atrial fibrillation with a controlled ventricular response. There were PVCs or aberrant beats. Chest x-ray notes a left lower lobe pneumonia and cardiomegaly. PG Care Time/CCT Total # of Minutes Spent Total Time Spent with Patient: Total time spent is greater than 50% in coordination of care (as documented) at patient's floor/unit and/or counseling patient: Coding Level of Care Code 60973 Initial Inpt Care Lvl 3 Diagnoses Elevated troponin R77.8 Atrial fibrillation I48.91 Hypertension I10 Hypercholesterolemia E78.00
--- NOTE | 2022-03-02 11:57 | Electrocardiogram Report ---
Test Reason : Blood Pressure : / mmHG Vent. Rate : 081 BPM Atrial Rate : 090 BPM P-R Int : 000 ms QRS Dur : 092 ms QT Int : 374 ms P-R-T Axes : 000 015 038 degrees QTc Int : 434 ms Poor data quality, interpretation may be adversely affected Atrial fibrillation with premature ventricular or aberrantly conducted complexes Abnormal ECG No previous ECGs available Confirmed by Danny Dejesus ([id number]) on 03/02/2022 11:57:06 AM Referred By: REFERRED SELF Confirmed By:Danny Dejesus
--- NOTE | 2022-03-02 12:15 | Electrocardiogram Report ---
Test Reason : Blood Pressure : / mmHG Vent. Rate : 069 BPM Atrial Rate : 468 BPM P-R Int : 000 ms QRS Dur : 098 ms QT Int : 400 ms P-R-T Axes : 000 019 043 degrees QTc Int : 428 ms Atrial fibrillation with premature ventricular or aberrantly conducted complexes Septal infarct (cited on or before 01-MAR-2022) Abnormal ECG When compared with ECG of 01-MAR-2022 19:42, (unconfirmed) Questionable change in initial forces of Septal leads Confirmed by Danny Dejesus ([id number]) on 03/02/2022 12:15:11 PM Referred By: REFERRED SELF Confirmed By:Danny Dejesus
[2022-03-02] MEDS: ACETAMINOPHEN 325 MG TAB PO PRN ×2 (13:00→23:03)
--- NOTE | 2022-03-02 17:52 | Hospitalist Progress Note ---
Date of Service March 02, 2022 Assessment & Plan (1) Pneumonia: Plan: Will contiue treatment for community acquired pneumonia. Ceftriaxone 2 g IV daily Azithromycin 500 mg IV daily Duonebs every 4 hours while awake and every 2 hours when necessary. Guaifenesin extended release 12 mg p.o. twice daily Ordered flutter valve on 03/02 Will repeat chest x ray in am. Anticipate discharge in 1-2 days. (2) Elevated troponin: Plan: Elevated troponin/hypertension/atrial fibrillation- Highly sensitive troponin minimally elevated at 47.7, with follow-up 44.7. Continue apixaban Hold Entresto due to ROSIO on CKD (3) Atrial fibrillation: Plan: See above (4) Hypertension: Plan: See above (5) Diabetes mellitus: Plan: Hold glimepiride and pioglitazone Place on Accu-Cheks before meals and at bedtime NovoLog coverage per scale (6) Acute kidney injury superimposed on CKD: Plan: Creatinine 2.50 on admission, with patient reporting it usually around 1.7 Hold Entresto overnight reassess labs in a.m. Reports decreased oral intake over the past 4 days, which is likely contributing (7) CKD (chronic kidney disease), stage III: Plan: See above (8) Hyponatremia: Plan: Likely associated with decreased oral intake and reassess in a.m. (9) Depression: Plan: Continue escitalopram Admission and Anticipated Discharge Date Admission Date: March 01, 2022 Subjective 76 yo male reports mild improvement from yesterday. He is traveling and is camping nearby. But had a fever and SOB. Patient reports today he still has some SOB. Patient denies any fever, chills today. Review of Systems Review of Systems: All systems reviewed & are unremarkable except as noted in HPI & below Physical Exam Physical Exam: The patient is awake, alert and oriented 3, well developed and well nourished, normocephalic and atraumatic, lying in bed and in no acute distress. HEENT--PERRL, EOMI, mucous membranes and oropharynx normal. Neck--supple. No JVD. No bruits. Thyroid normal, trachea midline, no adenopathy. Heart--normal S1 and S2. No murmurs, rubs or gallops. Lungs--decreased breath sounds noted on left lower lung field, right lung is clear, no respiratory distress, no accessory muscle use. Abdomen--normal bowel sounds and soft. Nontender. Nondistended, no hernias or masses, no organomegaly. Extremities--no cyanosis or clubbing. No edema. There are good distal pulses b/l. Dermatologic--normal skin turgor, normal color, no abnormal lymph nodes, no rash. Neurologic--cranial nerves II through XII grossly intact. Rheumatologic--normal range of motion. Psychiatric--normal affect. Results & Data Results & Data ([facility]) Vital Signs (Past 12 Hours) Vital Signs Temp Pulse Resp BP Pulse Ox 03/02/22 15:25 37.3 C 59 L 20 109/60 95 03/02/22 11:20 36.9 C 73 18 131/65 91 03/02/22 07:39 37.0 C 62 20 105/55 L 94 03/02/22 07:10 73 18 92 PG Care Time/CCT Total # of Minutes Spent Total Time Spent with Patient: Total time spent is greater than 50% in coordination of care (as documented) at patient's floor/unit and/or counseling patient: Coding Level of Care Code 57125 Subseq Hosp Care Lvl 2 Diagnoses Pneumonia J18.9 Elevated troponin R77.8 Atrial fibrillation I48.91 Hypertension I10 Diabetes mellitus E11.9 Acute kidney injury superimposed on CKD N17.9; N18.9 CKD (chronic kidney disease), stage III N18.30 Hyponatremia E87.1 Depression F32.A
[2022-03-02] MEDS ORDERED: HYDROcodone/HOMATROPINE SYRUP 5MG/1.5MG 5ML UDP PO STA (19:51)
[2022-03-02] MEDS: MELATONIN 3 MG TAB PO PRN (20:59)
[2022-03-02] MEDS: cefTRIAXone SODIUM 2,000 MG in DEXTROSE 5% 50 ML IV SCH (21:04)
[2022-03-02] MEDS: ROSUVASTATIN CALCIUM 20 MG TAB PO SCH (22:23)
[2022-03-02] MEDS: AZITHROMYCIN 500 MG in DEXTROSE 5% 250 ML IV SCH (22:24)
[2022-03-02 22:26] LABS: A calco-baum cmplx NotReported Not Detected (NotDetected); Bact fragilis Not Reported Not Detected (NotDetected); C auris Not Reported Not Detected (NotDetected); Calbicans Not Reported Not Detected (NotDetected); Candida glabrata Not Reported Not Detected (NotDetected); Candida krusei Not Reported Not Detected (NotDetected); Cneoformans/gatti Not Reported Not Detected (NotDetected); Cparapsilosis Not Reported Not Detected (NotDetected); Ctropicalis Not Reported Not Detected (NotDetected); E cloacae compx Not Reported Not Detected (NotDetected); Efaecalis Not Reported Not Detected (NotDetected); Efaecium Not Reported Not Detected (NotDetected); Enterobacterales Not Reported Not Detected (NotDetected); Escherichia coli Not Reported Not Detected (NotDetected); H influenzae Not Reported DETECTED (NotDetected); K aerogenes Not Reported Not Detected (NotDetected); Koxytoca Not Reported Not Detected (NotDetected); Kpneumoniae grp Not Reported Not Detected (NotDetected); Lmonocyt Not Reported Not Detected (NotDetected); N meningitidis Not Reported Not Detected (NotDetected); P aeruginosa Not Reported Not Detected (NotDetected); Proteus spp Not Reported Not Detected (NotDetected); Salmonella spp Not Reported Not Detected (NotDetected); Smarcescens Not Reported Not Detected (NotDetected); Staph lugdunensis Not Reported Not Detected (NotDetected); Staph spp. Not Reported Not Detected (NotDetected); Staphaureus Not Reported Not Detected (NotDetected); Staphepi Not Reported Not Detected (NotDetected); Stenmaltophilia Not Reported Not Detected (NotDetected); Strep agal(GrpB) Not Reported Not Detected (NotDetected); Strep pneum Not Reported Not Detected (NotDetected); Strep pyog (GrpA) Not Reported Not Detected (NotDetected); Strep spp Not Reported Not Detected (NotDetected)
[2022-03-02 22:35] LABS: Haemophilus influenzae DETECTED (NotDetected)
[2022-03-03] MEDS: APIXABAN 5 MG TABLET PO SCH ×2 (08:05→20:47)
[2022-03-03 08:06] LABS: Mean Corpuscular Hgb Conc 34.2 g/dL (32-36); Mean Platelet Volume 10.3 fL (7.4-10.4); Platelet Count 355 K/uL (130-400)
[2022-03-03] MEDS: INSULIN ASPART PER UNIT SC SCH ×4 (08:18→20:58)
[2022-03-03 08:22] LABS: ALC (manual) 0.83 K/uL (1.2-3.4); ANC (manual) 21.84 K/uL (1.4-6.5); Echinocytes 1+; Hematocrit (blood only) 32.5 % (42-52); Hemoglobin 11.1 g/dL (14.0-18.0); Lymphocytes # (manual) 0.83 K/uL (1.2-3.4); Lymphocytes % (manual) 3.5 %; Mean Corpuscular Hemoglobin 31.1 pg (25-34); Metamyelocytes # (manual) 0.21 K/uL (0-0); Metamyelocytes % (manual) 0.9 %; Monocytes # (manual) 0.83 K/uL (0.11-0.59); Monocytes % (manual) 3.5 %; Neutrophils # (manual) 21.84 K/uL (1.4-6.5); Neutrophils % (manual) 92.1 %; RDW Coefficient of Variation 13.8 % (11.5-14.5); RDW Standard Deviation 46.2 fL (36.4-46.3); Red Blood Count 3.57 M/uL (4.7-6.1); White Blood Count 23.71 K/uL (4.8-10.8)
[2022-03-03 08:29] LABS: Albumin Level 3.2 gm/dl (3.4-5.0); BUN Creatinine Ratio 23.1 (10-20); Calcium 8.8 mg/dl (8.5-10.1); Creatinine Clr Calc Pharmacy 29.3 ml/min; Est GFR (African American) 26.2 ml/min; Est GFR (Non-African American) 22.6 ml/min; Magnesium 2.4 mg/dl (1.7-2.4); Potassium 4.3 mmol/L (3.5-5.1)
--- NOTE | 2022-03-03 08:32 | XRay Report ---
XR chest 2V PA/lateral CLINICAL HISTORY: Follow-up suspected left lower lobe pneumonia. COMPARISON STUDY: 03/01/2022 TECHNIQUE: 2 views of the chest FINDINGS: Frontal and lateral radiographs of the chest the heart to again be mildly enlarged. There is a patchy alveolar opacity within the left lower lobe posteriorly as seen particularly on the lateral radiogra ph. There is a positive vertebral body sign. Findings are characteristic of left lower lobe pneumonia . The remainder of the lungs are clear. There is no evidence for effusion bilaterally. There is no evid ence for vascular congestion. There is no acute osseous pathology. IMPRESSION: 1. Posterior retrocardiac alveolar opacity representing the presence of pneumonia. ACT 112: Negative or not required by law. Electronically signed by: Lupillo Montes M.D. 03/03/2022 8:31 AM
[2022-03-03] MEDS: ESCITALOPRAM OXALATE 20 MG TAB PO SCH (09:04)
[2022-03-03] MEDS: ASPIRIN 81 MG ECTAB PO SCH (09:05)
[2022-03-03] MEDS: guaiFENesin 600 MG TABCR PO SCH ×2 (09:05→21:47)
[2022-03-03] MEDS: OMEGA-3 (PURIFIED FISH OIL) 1 GM CAP PO SCH (09:05)
[2022-03-03] MEDS: ACETAMINOPHEN 325 MG TAB PO PRN (09:07)
[2022-03-03] MEDS: HYDROcodone/HOMATROPINE SYRUP 5MG/1.5MG 5ML UDP PO PRN (20:47)
[2022-03-03] MEDS: MELATONIN 3 MG TAB PO PRN (20:47)
[2022-03-03] MEDS: cefTRIAXone SODIUM 2,000 MG in DEXTROSE 5% 50 ML IV SCH (20:48)
[2022-03-03] MEDS: ROSUVASTATIN CALCIUM 20 MG TAB PO SCH (21:47)
[2022-03-03] MEDS: AZITHROMYCIN 500 MG in DEXTROSE 5% 250 ML IV SCH (21:48)
[2022-03-04] MEDS: ACETAMINOPHEN 325 MG TAB PO PRN ×2 (03:23→20:20)
[2022-03-04 06:58] LABS: Mean Corpuscular Hgb Conc 34.2 g/dL (32-36); Mean Platelet Volume 10.2 fL (7.4-10.4); Platelet Count 345 K/uL (130-400)
[2022-03-04 07:00] LABS: Hematocrit (blood only) 26.9 % (42-52); Hemoglobin 9.2 g/dL (14.0-18.0); Mean Corpuscular Hemoglobin 30.7 pg (25-34); Mean Corpuscular Volume 89.7 fL (80-100); RDW Coefficient of Variation 13.8 % (11.5-14.5); RDW Standard Deviation 45.7 fL (36.4-46.3); White Blood Count 24.39 K/uL (4.8-10.8)
[2022-03-04 07:25] LABS: Albumin Level 2.7 gm/dl (3.4-5.0); BUN Creatinine Ratio 25.1 (10-20); Creatinine Clr Calc Pharmacy 28.8 ml/min; Est GFR (African American) 25.8 ml/min; Est GFR (Non-African American) 22.3 ml/min; Magnesium 2.3 mg/dl (1.7-2.4); Potassium 4.1 mmol/L (3.5-5.1)
--- NOTE | 2022-03-04 07:34 | Electrocardiogram Report ---
Test Reason : Blood Pressure : / mmHG Vent. Rate : 073 BPM Atrial Rate : 258 BPM P-R Int : 000 ms QRS Dur : 090 ms QT Int : 384 ms P-R-T Axes : 000 006 062 degrees QTc Int : 423 ms Poor data quality, interpretation may be adversely affected Atrial fibrillation Abnormal ECG When compared with ECG of 02-MAR-2022 05:39, Criteria for Septal infarct are no longer Present Confirmed by Javier Cook ([id number]) on 03/04/2022 7:34:16 AM Referred By: REFERRED SELF Confirmed By:Javier Cook
[2022-03-04 07:35] LABS: ALC (manual) 0.63 K/uL (1.2-3.4); ANC (manual) 20.61 K/uL (1.4-6.5); Echinocytes 2+; Eosinophils # (manual) 0.63 K/uL (0-0.5); Eosinophils % (manual) 2.6 %; Lymphocytes # (manual) 0.63 K/uL (1.2-3.4); Lymphocytes % (manual) 2.6 %; Monocytes # (manual) 2.51 K/uL (0.11-0.59); Monocytes % (manual) 10.3 %; Neutrophils # (manual) 20.61 K/uL (1.4-6.5); Neutrophils % (manual) 84.5 %
[2022-03-04] MEDS: INSULIN ASPART PER UNIT SC SCH ×4 (09:02→20:16)
[2022-03-04] MEDS: guaiFENesin 600 MG TABCR PO SCH ×2 (09:14→20:22)
[2022-03-04] MEDS: HYDROcodone/HOMATROPINE SYRUP 5MG/1.5MG 5ML UDP PO PRN ×2 (09:34→20:31)
[2022-03-04] MEDS: OMEGA-3 (PURIFIED FISH OIL) 1 GM CAP PO SCH (10:04)
[2022-03-04] MEDS: ESCITALOPRAM OXALATE 20 MG TAB PO SCH (10:04)
[2022-03-04] MEDS: ASPIRIN 81 MG ECTAB PO SCH (10:04)
[2022-03-04] MEDS: APIXABAN 5 MG TABLET PO SCH ×2 (10:04→20:20)
--- NOTE | 2022-03-04 11:27 | Hospitalist Progress Note ---
Date of Service March 04, 2022 Assessment & Plan (1) Pneumonia: Plan: CAP. 2nd to H.flu. With associated septicemia. Continue Ceftriaxone 2 g IV daily - day #4 today. Azithromycin -- change 500mg to 250mg, change IV to PO, and take today/tomorrow, then complete. Cont Duonebs but prn. Cont Guaifenesin extended release 1200 mg p.o. twice daily. Incentive. Flutter. Schedule tessalon pearles 100mg TID. Due to refractory leukocytosis will obtain CT chest to r/o parapneumonic effusion or empyema but risk of such is low. (2) Septicemia: Plan: 2nd to H.flu. Source - pneumonia. Repeat blood cultures today. Continue rocephin IV. (3) Elevated troponin: Plan: 2nd to myocardial demand ischemia in setting of #1, #2 above. No evidence of ACS. No ischemic symptoms. (4) Atrial fibrillation: Plan: He is not on AV haley agents. Rates controlled; if anything a little bradycardic at times. Continue Eliquis 5mg BID. (5) Hypertension: Plan: Holding entresto BID due to ROSIO. (6) Diabetes mellitus: Plan: Hold glimepiride and pioglitazone Cont novolog SSI HbA1C 7.4% (7) Acute kidney injury superimposed on CKD: Plan: Creatinine 2.50 on admission. Creatinine remains elevated despite supportive care. ROSIO likely sepsis-associated ATN, but will check CT a/p - rule out stones, obstruction, etc Usual baseline ~1.7. Cont to hold Entresto. Will restart IV fluids. (8) CKD (chronic kidney disease), stage III: Plan: See above baseline Creatinine per patient - to his recollection - 1.7 daily BMP (9) Hyponatremia: Plan: appears volume contracted on examination restart isotonic fluids today bmp am (10) Depression: Plan: Continue escitalopram Plan: DVT proph - eliquis PT, OT evals needed will repeat a COVID test and, if negative, can d/c precautions updated at bedside Admission and Anticipated Discharge Date Admission Date: March 01, 2022 Subjective patient states he "feels a little better" but still with severe cough largely dry denies feeling dyspneic very tired & fatigued he reports he was sick for a "few days " prior to presentation, but arrived during my visit and said he had been sick for 1-2 weeks prior patient states he thinks his creatinine was 1.3 1-2 years ago, then derek to 1.7 in late 2020 he also thinks he "may have a passed a kidney stone" over the last few days he reports having had cysto with stent placement in the past he and his were traveling in a motorhome from [place] and were staying at [facility] right before admission appetite fair at best Review of Systems Review of Systems: gen - no fevers/chills; continues w/ fatigue & poor appetite cv - no chest pain or pleuritic chest pain pulm - cough, congestion GI - no vomiting, no diarrhea; mild abdominal discomfort when he coughs - no hematuria; no dysuria psych - states he "felt a little confused" the last few days Physical Exam Physical Exam: gen - severe cough, laying in bed, looks sick but nontoxic mouth - MM dry; lips dry neck - no JVD heart - irregular, bradycardic, s1 s2, no murmur lungs - mild rales on right, severe rales L base, decreased BS L base; no wheezing; no increased work of breathing abd - soft NT ND BS+; no flank tenderness to palpation ext - no edema, pulses 2+ b/l psych - awake, alert Results & Data Results & Data ([facility]) Vital Signs (Past 12 Hours) Vital Signs Temp Pulse Pulse Resp BP Pulse Ox 03/04/22 07:38 36.8 C 54 L 16 103/62 93 03/04/22 07:33 61 03/04/22 04:37 37.0 C 61 18 102/60 94 Laboratory Results Laboratory Results - last 24 hr 03/03/22 03/03/22 03/03/22 11:32 16:12 20:57 WBC RBC Hgb Hct MCV MCH MCHC RDW Std Deviation RDW Coeff of Vivian Plt Count MPV Neutrophils % (Manual) Lymphocytes % (Manual) Monocytes % (Manual) Eosinophils % (Manual) Neutrophils # (Manual) Total Absolute Neuts Lymphocytes # (Manual) Total Abs Lymphocytes Monocytes # (Manual) Eosinophils # (Manual) Echinocytes Sodium Potassium Chloride Carbon Dioxide Anion Gap BUN Creatinine Est Cr Clr Drug Dosing Est GFR ( Amer) Est GFR (Non-Af Amer) BUN/Creatinine Ratio Glucose POC Glucose 147 H 166 H 129 H Calcium Phosphorus Magnesium Albumin 03/04/22 03/04/22 03/04/22 06:20 06:20 07:37 WBC 24.39 H RBC 3.00 L Hgb 9.2 L Hct 26.9 L MCV 89.7 MCH 30.7 MCHC 34.2 RDW Std Deviation 45.7 RDW Coeff of Vivian 13.8 Plt Count 345 MPV 10.2 Neutrophils % (Manual) 84.5 Lymphocytes % (Manual) 2.6 Monocytes % (Manual) 10.3 Eosinophils % (Manual) 2.6 Neutrophils # (Manual) 20.61 H Total Absolute Neuts 20.61 H Lymphocytes # (Manual) 0.63 L Total Abs Lymphocytes 0.63 L Monocytes # (Manual) 2.51 H Eosinophils # (Manual) 0.63 H Echinocytes 2+ Sodium 132 L Potassium 4.1 Chloride 102 Carbon Dioxide 20 L Anion Gap 10 BUN 66 H Creatinine 2.63 H Est Cr Clr Drug Dosing 28.8 Est GFR ( Amer) 25.8 Est GFR (Non-Af Amer) 22.3 BUN/Creatinine Ratio 25.1 H Glucose 136 H POC Glucose 137 H Calcium 8.0 L Phosphorus 4.0 Magnesium 2.3 Albumin 2.7 L 03/04/22 11:18 WBC RBC Hgb Hct MCV MCH MCHC RDW Std Deviation RDW Coeff of Vivian Plt Count MPV Neutrophils % (Manual) Lymphocytes % (Manual) Monocytes % (Manual) Eosinophils % (Manual) Neutrophils # (Manual) Total Absolute Neuts Lymphocytes # (Manual) Total Abs Lymphocytes Monocytes # (Manual) Eosinophils # (Manual) Echinocytes Sodium Potassium Chloride Carbon Dioxide Anion Gap BUN Creatinine Est Cr Clr Drug Dosing Est GFR ( Amer) Est GFR (Non-Af Amer) BUN/Creatinine Ratio Glucose POC Glucose 225 H Calcium Phosphorus Magnesium Albumin Diagnostic Findings blood cultures from admission - 09/14 bottles + for H flu, betalactamase NEGATIVE PG Care Time/CCT Total # of Minutes Spent Total Time Spent with Patient: Total time spent is greater than 50% in coordination of care (as documented) at patient's floor/unit and/or counseling patient: Coding Level of Care Code 78635 Subseq Hosp Care Lvl 3 Diagnoses Pneumonia J18.9 Elevated troponin R77.8 Atrial fibrillation I48.91 Hypertension I10 Diabetes mellitus E11.9 Acute kidney injury superimposed on CKD N17.9; N18.9 CKD (chronic kidney disease), stage III N18.30 Hyponatremia E87.1 Depression F32.A Septicemia A41.9
[2022-03-04] MEDS ORDERED: SODIUM CHLORIDE 0.9% 1000ML 1,000 ML IV SCH (11:30)
--- NOTE | 2022-03-04 12:39 | CT Scan Report ---
CT OF THE CHEST WITHOUT IV CONTRAST CLINICAL HISTORY: Left lower lobe pneumonia, persistent leukocytosis; ro empyema COMPARISON STUDY: Chest radiograph March 03, 2022. CT DOSE: 1893.19 mGy.cm TECHNIQUE: Axial images of the chest were obtained without IV contrast. Images were reviewed in the axial, sagittal, and coronal planes. IV contrast was not administered for this examination. Automat ed exposure control was utilized for the study. A dose lowering technique was utilized adhering to t he principles of ALARA. FINDINGS: No enlarged axillary or mediastinal lymph nodes are noted. Several mildly enlarged left hi lar nodes are noted. Index left hilar node on image 154 of 326 measures 1.9 x 1.5 cm. Mild cardiomega ly is noted. There is extensive coronary artery calcification. No pericardial effusion is present. Th ere is extensive left lower lobe consolidation. Moderate alveolar opacities within the left upper and right lower lobes are noted. There are mild airspace opacities within the right upper lobe. No centr al obstructing mass is present. No pleural effusion is present. No cavitation is noted. Mild emphysem a within the upper lobes is noted. Abdomen and pelvis CT will be reported separately. IMPRESSION: 1. Extensive left lower lobe consolidation. Moderate alveolar opacities within the left upper and rig ht lower lobes with mild airspace opacities within the right upper lobe. The findings suggest multifo gayle pneumonia. No pleural effusion. No cavitation. No central obstructing mass. A follow-up chest CT in 3 months to ensure resolution is recommended. 2. Several mildly enlarged left hilar lymph nodes. These are likely reactive but should be assessed o n follow-up CT. 3. Mild cardiomegaly. Extensive coronary artery calcification. ACT 112: Negative or not required by law. Electronically signed by: Aamir Herrera M.D. 03/04/2022 12:37 PM
--- NOTE | 2022-03-04 12:50 | CT Scan Report ---
ABDOMEN AND PELVIS CT WITHOUT CONTRAST HISTORY: Acute renal failure and a patient with history of kidney stones acute renal failure; h/o st ones; r/o obstruc stone TECHNIQUE: Multiaxial CT images of the abdomen and pelvis were performed without contrast. A dose lo wering technique was utilized adhering to the principles of ALARA. COMPARISON STUDY: Chest CT of same day FINDINGS: Multifocal left greater then right bibasilar airspace opacities. No pneumatosis or pneumope ritoneum. Decreased attenuation of the cardiac blood pool suggestive of anemia. The heart is upper li mits of normal in size with coronary artery calcifications. The unenhanced spleen, mildly atrophic pancreas, mildly contracted gallbladder and adrenal glands are unremarkable. The unenhanced liver is within normal limits. Cortical thinning of the kidneys. Bilate ral nonspecific perinephric stranding. 2.2 cm cyst within the inferior pole right kidney. No renal or ureteral calculi or hydronephrosis. The prostate is upper limits of normal in size. Unremarkable uri nary bladder. Small fat filled right inguinal hernia. Atherosclerosis of the aorta. Ectasia of the in frarenal abdominal aorta measures 2.5 x 2.4 cm. There is no lymphadenopathy identified. Tiny hiatal hernia. There is no bowel obstruction or bowel wall thickening. Colonic diverticulosis wi th moderate fecal retention. Normal appendix. Tiny fat filled periumbilical hernia. Degenerative gerard ges of the spine, pelvis and hips. No acute fracture. IMPRESSION: 1. Left greater than right bibasilar airspace opacities are suggestive of multifocal pneumonia. 2. Nonspecific bilateral perinephric edema. No renal or ureteral calculi or hydronephrosis. 3. No bowel obstruction or bowel wall thickening. Normal appendix. 4. Colonic diverticulosis. 5. Additional findings as above. ACT 112: Negative or not required by law. The above report was generated using voice recognition software. It may contain grammatical, syntax o r spelling errors. Electronically signed by: Maximo Ledbetter M.D. 03/04/2022 12:49 PM
[2022-03-04] MEDS: BENZONATATE 100 MG CAPSULE PO SCH ×2 (12:55→20:31)
[2022-03-04] MEDS: AZITHROMYCIN 250 MG TAB PO SCH (12:55)
[2022-03-04] MEDS: cefTRIAXone SODIUM 2,000 MG in DEXTROSE 5% 50 ML IV SCH (20:19)
[2022-03-04] MEDS: MELATONIN 3 MG TAB PO PRN (20:20)
[2022-03-04] MEDS: ROSUVASTATIN CALCIUM 20 MG TAB PO SCH (20:22)
--- NOTE | 2022-03-05 03:02 | Communication Note ---
Date of Service: March 05, 2022 Informed of asymptomatic marleny afib slow response. Per tele, persistently in the 40s, dipping into mid 30s. At time of my assessment, HR in the low 50s. Ins tructed nurse to place pacer pads nearby. Checking ecg and mg, K, tsh. mg, K, tsh acceptable.
[2022-03-05 03:55] LABS: Hematocrit (blood only) 26.8 % (42-52); Hemoglobin 9.2 g/dL (14.0-18.0); Mean Corpuscular Hemoglobin 30.8 pg (25-34); Mean Corpuscular Hgb Conc 34.3 g/dL (32-36); Mean Corpuscular Volume 89.6 fL (80-100); Mean Platelet Volume 9.9 fL (7.4-10.4); Platelet Count 364 K/uL (130-400); RDW Coefficient of Variation 14.1 % (11.5-14.5); RDW Standard Deviation 46.8 fL (36.4-46.3); Red Blood Count 2.99 M/uL (4.7-6.1); White Blood Count 19.46 K/uL (4.8-10.8)
[2022-03-05 04:16] LABS: Albumin Globulin Ratio 0.8 (0.9-2); Albumin Level 2.5 gm/dl (3.4-5.0); BUN Creatinine Ratio 28.2 (10-20); Bilirubin,Total 0.3 mg/dl (0.2-1.0); C Reactive Protein 20.5 mg/dl (0-0.5); Calcium 8.2 mg/dl (8.5-10.1); Creatinine Clr Calc Pharmacy 30.9 ml/min; Est GFR (African American) 28.2 ml/min; Est GFR (Non-African American) 24.3 ml/min; Globulin 3.3 gm/dl (2.5-4.0); Magnesium 2.3 mg/dl (1.7-2.4); Potassium 4.7 mmol/L (3.5-5.1); Total Protein 5.8 gm/dl (6.0-8.3)
[2022-03-05 04:18] LABS: Basophils # (auto) 0.05 K/uL (0-0.2); Basophils % (auto) 0.3 %; Eosinophils # (auto) 0.31 K/uL (0-0.5); Eosinophils % (auto) 1.6 %; Immature Granulocytes # (auto) 0.86 K/uL (0.00-0.02); Immature Granulocytes % (auto) 4.4 %; Lymphocytes # (auto) 1.97 K/uL (1.2-3.4); Lymphocytes % (auto) 10.1 %; Monocytes # (auto) 1.03 K/uL (0.11-0.59); Monocytes % (auto) 5.3 %; Neutrophils # (auto) 15.24 K/uL (1.4-6.5); Neutrophils % (auto) 78.3 %
[2022-03-05] MEDS: guaiFENesin 600 MG TABCR PO SCH ×2 (08:20→21:24)
[2022-03-05] MEDS: AZITHROMYCIN 250 MG TAB PO SCH (08:20)
[2022-03-05] MEDS: APIXABAN 5 MG TABLET PO SCH ×2 (08:20→21:23)
[2022-03-05] MEDS: ASPIRIN 81 MG ECTAB PO SCH (08:20)
[2022-03-05] MEDS: OMEGA-3 (PURIFIED FISH OIL) 1 GM CAP PO SCH (08:20)
[2022-03-05] MEDS: ESCITALOPRAM OXALATE 20 MG TAB PO SCH (08:20)
[2022-03-05] MEDS: BENZONATATE 100 MG CAPSULE PO SCH ×3 (08:24→21:23)
[2022-03-05] MEDS: INSULIN ASPART PER UNIT SC SCH ×4 (08:37→21:15)
--- NOTE | 2022-03-05 14:25 | Hospitalist Progress Note ---
Date of Service March 05, 2022 Assessment & Plan (1) Pneumonia: Plan: CAP. Extensive bilateral infiltrates on CT. Fortunately no empyema or parapneumonic effusion. 2nd to H.flu. With associated septicemia. Continue Ceftriaxone 2 g IV daily - day #5 today. Azithromycin -- day #4 of 5 of such. WBC count is finally starting to improve today. Cont Duonebs prn. Cont Guaifenesin extended release 1200 mg p.o. twice daily. Incentive. Flutter. Cont tessalon pearles 100mg TID. (2) Septicemia: Plan: 2nd to H.flu. Source - pneumonia. Repeat blood cultures from 03/04 negative to date. Continue rocephin IV. Plan 14 days in total of IV/PO abx. (3) Elevated troponin: Plan: 2nd to myocardial demand ischemia in setting of #1, #2 above. No evidence of ACS. No ischemic symptoms. (4) Atrial fibrillation: Plan: He is not on AV haley agents. Rates controlled and, at times, has severe bradycardia during sleep (documented rates upper 20s/low 30s with some minor pauses). Continue to monitor. Could have beginnings of SSS / tachy-marleny syndrome. Check echo. Continue Eliquis 5mg BID. TSH, K, mag noted to be normal. (5) Hypertension: Plan: Holding entresto BID due to ROSIO. (6) Diabetes mellitus: Plan: Hold glimepiride and pioglitazone Cont novolog SSI Add once daily lantus HbA1C 7.4% (7) Acute kidney injury superimposed on CKD: Plan: Creatinine 2.50 on admission. Creatinine remains elevated despite supportive care. Cr only scantly improved to 2.4 today. u/a finally obtained - no casts, but ROSIO still likely sepsis-associated ATN continue IV fluids. Usual baseline ~1.7. Cont to hold Entresto. of note - no obstruction on recent CT abd/pelvis. repeat BMP am (8) CKD (chronic kidney disease), stage III: Plan: See above baseline Creatinine per patient - to his recollection - 1.7 daily BMP (9) Hyponatremia: Plan: improved/resolved was 2nd to volume contraction from poor po intake from #1 cont isotonic fluids bmp am (10) Depression: Plan: Continue escitalopram Plan: DVT proph - eliquis PT, OT evals appreciated attempted to call pt's at number listed in chart - unable to leave a message, and she did not answer Admission and Anticipated Discharge Date Admission Date: March 01, 2022 Subjective patient states he is "doing better" with that said he is still resting in the bed much of the days with the lights off last night he "slept very soundly" tele overnight did show very slow a.fib with rates at one point in the upper 20s he had pauses up to 3 to 3.5 seconds no AV block he also had a brief run of wide-complex tachycardia - perhaps a.fib with aberrancy cough is biggest complaint largely nonproductive --- but denies any dyspnea denies any cp denies pleurisy denies orthopnea Review of Systems Review of Systems: gen - weak, fatigue cv - no chest pains pulm - coughing GI - no N/V/diarrhea - voiding ok Physical Exam Physical Exam: gen - laying flat in bed without orthopnea; looks a little better today mouth - MM still dry neck - no JVD heart - irregular, bradycardic, s1 s2, no murmur lungs - mild rales on right, severe rales L base, decreased BS L base; no wheezing; no increased work of breathing; mild rales right anterior chest abd - soft NT ND BS+; no flank tenderness to palpation ext - no edema, pulses 2+ b/l psych - awake, alert, oriented Results & Data Results & Data ([facility]) Vital Signs (Past 12 Hours) Vital Signs Temp Pulse Resp BP BP Pulse Ox 03/05/22 11:34 36.7 C 55 L 19 124/63 94 03/05/22 07:33 36.5 C 88 19 129/64 92 03/05/22 03:02 37.0 C 55 L 15 124/77 96 Laboratory Results Laboratory Results - last 24 hr 03/04/22 03/04/22 03/04/22 17:43 20:10 Unknown WBC RBC Hgb Hct MCV MCH MCHC RDW Std Deviation RDW Coeff of Vivian Plt Count MPV Immature Gran % (Auto) Neut % (Auto) Lymph % (Auto) Garrard % (Auto) Eos % (Auto) Baso % (Auto) Neut # (Auto) Lymph # (Auto) Garrard # (Auto) Eos # (Auto) Baso # (Auto) Immature Gran # (Auto) Sodium Potassium Chloride Carbon Dioxide Anion Gap BUN Creatinine Est Cr Clr Drug Dosing Est GFR ( Amer) Est GFR (Non-Af Amer) BUN/Creatinine Ratio Glucose POC Glucose 135 H 170 H Calcium Magnesium Total Bilirubin AST ALT Alkaline Phosphatase C-Reactive Protein Total Protein Albumin Globulin Albumin/Globulin Ratio TSH SARS-CoV-2 (PCR) NEGATIVE 03/05/22 03/05/22 03/05/22 03:30 03:30 03:30 WBC 19.46 H RBC 2.99 L Hgb 9.2 L Hct 26.8 L MCV 89.6 MCH 30.8 MCHC 34.3 RDW Std Deviation 46.8 H RDW Coeff of Vivian 14.1 Plt Count 364 MPV 9.9 Immature Gran % (Auto) 4.4 Neut % (Auto) 78.3 Lymph % (Auto) 10.1 Garrard % (Auto) 5.3 Eos % (Auto) 1.6 Baso % (Auto) 0.3 Neut # (Auto) 15.24 H Lymph # (Auto) 1.97 Garrard # (Auto) 1.03 H Eos # (Auto) 0.31 Baso # (Auto) 0.05 Immature Gran # (Auto) 0.86 H Sodium 135 L Potassium 4.7 Chloride 105 Carbon Dioxide 21 Anion Gap 9 BUN 69 H Creatinine 2.45 H Est Cr Clr Drug Dosing 30.9 Est GFR ( Amer) 28.2 Est GFR (Non-Af Amer) 24.3 BUN/Creatinine Ratio 28.2 H Glucose 152 H POC Glucose Calcium 8.2 L Magnesium 2.3 Total Bilirubin 0.3 AST 38 ALT 31 Alkaline Phosphatase 69 C-Reactive Protein 20.50 H Total Protein 5.8 L Albumin 2.5 L Globulin 3.3 Albumin/Globulin Ratio 0.8 L TSH 2.921 SARS-CoV-2 (PCR) 03/05/22 03/05/22 07:00 11:20 WBC RBC Hgb Hct MCV MCH MCHC RDW Std Deviation RDW Coeff of Vivian Plt Count MPV Immature Gran % (Auto) Neut % (Auto) Lymph % (Auto) Garrard % (Auto) Eos % (Auto) Baso % (Auto) Neut # (Auto) Lymph # (Auto) Garrard # (Auto) Eos # (Auto) Baso # (Auto) Immature Gran # (Auto) Sodium Potassium Chloride Carbon Dioxide Anion Gap BUN Creatinine Est Cr Clr Drug Dosing Est GFR ( Amer) Est GFR (Non-Af Amer) BUN/Creatinine Ratio Glucose POC Glucose 134 H 171 H Calcium Magnesium Total Bilirubin AST ALT Alkaline Phosphatase C-Reactive Protein Total Protein Albumin Globulin Albumin/Globulin Ratio TSH SARS-CoV-2 (PCR) Diagnostic Findings repeat blood cultures from 03/04 remain negative PG Care Time/CCT Total # of Minutes Spent Total Time Spent with Patient: Total time spent is greater than 50% in coordination of care (as documented) at patient's floor/unit and/or counseling patient: Coding Level of Care Code 43101 Subseq Hosp Care Lvl 3 Diagnoses Pneumonia J18.9 Septicemia A41.9 Elevated troponin R77.8 Atrial fibrillation I48.91 Hypertension I10 Diabetes mellitus E11.9 Acute kidney injury superimposed on CKD N17.9; N18.9 CKD (chronic kidney disease), stage III N18.30 Hyponatremia E87.1 Depression F32.A
[2022-03-05] MEDS ORDERED: LACTATED RINGER'S 1,000 ML IV SCH (14:30)
--- NOTE | 2022-03-05 15:21 | XCELERA ---
[id number]
[2022-03-05] MEDS: TRIAMCINOLONE ACET 0.1% CR 15 GM TUBE EXT SCH ×2 (16:17→21:24)
[2022-03-05 17:50] LABS: Appearance Urine Clear (Clear); Bilirubin Urine Negative (Negative); Blood Urine Trace (Negative); Color Urine Yellow; Glucose Urine UA Negative (Negative); Ketones Urine Negative (Negative); Leukocyte Esterase Urine Negative (Negative); Nitrite Urine Negative (Negative); Protein Urine 2+ (Negative); RBC Urine Automated 0-4 /hpf (0-4); Specific Gravity Urine 1.015 (1.000-1.030); Urobilinogen Urine Negative (Negative)
[2022-03-05 18:04] LABS: Bacteria Urine Automated 1+ (Negative)
[2022-03-05] MEDS: cefTRIAXone SODIUM 2,000 MG in DEXTROSE 5% 50 ML IV SCH (21:23)
[2022-03-05] MEDS: ROSUVASTATIN CALCIUM 20 MG TAB PO SCH (21:24)
[2022-03-05] MEDS: MELATONIN 3 MG TAB PO PRN (21:26)
[2022-03-06 07:07] LABS: Hematocrit (blood only) 28.7 % (42-52); Hemoglobin 9.5 g/dL (14.0-18.0); Mean Corpuscular Hemoglobin 29.7 pg (25-34); Mean Corpuscular Hgb Conc 33.1 g/dL (32-36); Mean Corpuscular Volume 89.7 fL (80-100); Platelet Count 469 K/uL (130-400); RDW Coefficient of Variation 14.3 % (11.5-14.5); RDW Standard Deviation 47.2 fL (36.4-46.3); White Blood Count 18.43 K/uL (4.8-10.8)
[2022-03-06 07:33] LABS: BUN Creatinine Ratio 29.3 (10-20); Calcium 8.4 mg/dl (8.5-10.1); Creatinine Clr Calc Pharmacy 40.9 ml/min; Est GFR (African American) 39.8 ml/min; Est GFR (Non-African American) 34.3 ml/min; Potassium 4.7 mmol/L (3.5-5.1)
[2022-03-06] MEDS: guaiFENesin 600 MG TABCR PO SCH ×2 (08:37→21:27)
[2022-03-06] MEDS: TRIAMCINOLONE ACET 0.1% CR 15 GM TUBE EXT SCH ×3 (08:37→21:28)
[2022-03-06] MEDS: ACETAMINOPHEN 325 MG TAB PO PRN (08:37)
[2022-03-06] MEDS: BENZONATATE 100 MG CAPSULE PO SCH ×3 (08:37→21:26)
[2022-03-06] MEDS: APIXABAN 5 MG TABLET PO SCH ×2 (08:37→21:26)
[2022-03-06] MEDS: OMEGA-3 (PURIFIED FISH OIL) 1 GM CAP PO SCH (08:38)
[2022-03-06] MEDS: ASPIRIN 81 MG ECTAB PO SCH (08:38)
[2022-03-06] MEDS: AZITHROMYCIN 250 MG TAB PO SCH (08:38)
[2022-03-06] MEDS: ESCITALOPRAM OXALATE 20 MG TAB PO SCH (08:38)
[2022-03-06] MEDS: INSULIN ASPART PER UNIT SC SCH ×4 (08:49→21:27)
[2022-03-06] MEDS ORDERED: INSULIN GLARGINE SOLOSTAR 100 UNITS/ML 3 ML PEN SC SCH (09:00)
--- NOTE | 2022-03-06 19:15 | Electrocardiogram Report ---
Test Reason : Blood Pressure : / mmHG Vent. Rate : 048 BPM Atrial Rate : 042 BPM P-R Int : 000 ms QRS Dur : 096 ms QT Int : 482 ms P-R-T Axes : 000 002 016 degrees QTc Int : 430 ms Atrial fibrillation with slow ventricular response Abnormal ECG When compared with ECG of 03-MAR-2022 06:04, Vent. rate has decreased BY 25 BPM No significant change Confirmed by Fernando Villatoro ([id number]) on 03/06/2022 7:14:30 PM Referred By: REFERRED SELF Confirmed By:Fernando Villatoro
--- NOTE | 2022-03-06 20:13 | Hospitalist Progress Note ---
Date of Service March 06, 2022 Assessment & Plan (1) Pneumonia: Plan: CAP. Extensive bilateral infiltrates on CT. Fortunately no empyema or parapneumonic effusion. 2nd to H.flu. With associated septicemia. Continue Ceftriaxone 2 g IV daily - day #6 today. s/p 5-day course of Azithromycin completed. WBC count had improved but still quite high. He may need 14-day course of rocephin given his +blood cultures (sensitivities - intermediate resistance to amp thus cannot use augmentin). Cont Duonebs prn. Cont Guaifenesin extended release 1200 mg p.o. twice daily. Incentive. Flutter. Cont tessalon pearles 100mg TID. (2) Septicemia: Plan: 2nd to H.flu. Source - pneumonia. Repeat blood cultures from 03/04 remain negative to date. Continue rocephin IV. Plan 14 days in total of IV/PO abx - but may need 14 days of IV given sensitivities of the H flu. Will check with ID. (3) Elevated troponin: Plan: 2nd to myocardial demand ischemia in setting of #1, #2 above. No evidence of ACS. No ischemic symptoms. (4) Atrial fibrillation: Plan: He is not on AV haley agents. He continues with rates upper 20s/low 30s with some minor pauses at times and runs of NSVT. Could have beginnings of SSS / tachy-marleny syndrome. Echo with preserved EF. I spoke with Dr Villatoro who will see him tomorrow for the severe a.fib with slow ventricular response and runs of NSVT. Continue Eliquis 5mg BID. TSH, K, mag noted to be normal. (5) Hypertension: Plan: Holding entresto BID due to ROSIO. (6) Diabetes mellitus: Plan: Hold glimepiride and pioglitazone Cont novolog SSI Cont lantus HbA1C 7.4% (7) Acute kidney injury superimposed on CKD: Plan: Creatinine 2.50 on admission. Improved to 1.8 today s/p IV fluids. u/a finally obtained - no casts, but ROSIO still likely sepsis-associated ATN Usual baseline ~1.7. Cont to hold Entresto. Of note - no obstruction on recent CT abd/pelvis. repeat BMP am (8) CKD (chronic kidney disease), stage III: Plan: See above baseline Creatinine per patient - to his recollection - 1.7 daily BMP (9) Hyponatremia: Plan: improved/resolved was 2nd to volume contraction from poor po intake from #1 stop IV fluids bmp am (10) Depression: Plan: Continue escitalopram Plan: DVT proph - eliquis PT, OT jossue appreciated - cleared, does not need rehab was not present at bedside during the visit the phone # I had called yesterday was their home phone in [place] where is currently staying ([facility]) there is no cell service will update hopefully tomorrow when she is here Admission and Anticipated Discharge Date Admission Date: March 01, 2022 Subjective tele overnight - a.fib rates during sleep will drop to upper 20s otherwise rates during sleep 30s to 50s while awake rates are often 50s with walking 60s/70s several runs of NSVT - 7 beat, 11 beat, etc - no symptoms (all nearly during rest) patient states "I think I'm coming along" feeling better still weak but he is walking in the room eating better cough improving denies dyspnea denies abd pain Review of Systems Review of Systems: gen - no fevers or chills; fatigue/appetite improving cv - no chest pain, no palpitations, no dizziness, no orthopnea pulm - cough but really no sputum GI - no pain, nausea, emesis, or diarrhea Physical Exam Physical Exam: gen - laying flat in bed without orthopnea; was in deep sleep, did arouse when I called his name mouth - MMM neck - no JVD heart - irregular, bradycardic, s1 s2, no murmur lungs - mild rales on right, moderate rales L base, decreased BS L base; no wheezing; no increased work of breathing abd - soft NT ND BS+ ext - no edema, pulses 2+ b/l psych - awake, alert, oriented x 3 skin - macularpapular rash left upper back improved today Results & Data Results & Data ([facility]) Vital Signs (Past 12 Hours) Vital Signs Temp Pulse Pulse Resp BP Pulse Ox 03/06/22 19:00 36.7 C 59 L 18 128/55 L 96 03/06/22 15:46 36.3 C L 58 L 18 120/69 95 03/06/22 12:48 36.7 C 64 134/65 95 Laboratory Results Laboratory Results - last 24 hr 03/05/22 03/06/22 03/06/22 20:32 06:26 06:26 WBC 18.43 H RBC 3.20 L Hgb 9.5 L Hct 28.7 L MCV 89.7 MCH 29.7 MCHC 33.1 RDW Std Deviation 47.2 H RDW Coeff of Vivian 14.3 Plt Count 469 H MPV 10.0 Sodium 136 Potassium 4.7 Chloride 106 Carbon Dioxide 22 Anion Gap 8 BUN 54 H Creatinine 1.84 H D Est Cr Clr Drug Dosing 40.9 Est GFR ( Amer) 39.8 Est GFR (Non-Af Amer) 34.3 BUN/Creatinine Ratio 29.3 H Glucose 162 H POC Glucose 208 H Calcium 8.4 L 03/06/22 03/06/22 03/06/22 07:41 11:06 16:03 WBC RBC Hgb Hct MCV MCH MCHC RDW Std Deviation RDW Coeff of Vivian Plt Count MPV Sodium Potassium Chloride Carbon Dioxide Anion Gap BUN Creatinine Est Cr Clr Drug Dosing Est GFR ( Amer) Est GFR (Non-Af Amer) BUN/Creatinine Ratio Glucose POC Glucose 168 H 156 H 101 H Calcium PG Care Time/CCT Total # of Minutes Spent Total Time Spent with Patient: Total time spent is greater than 50% in coordination of care (as documented) at patient's floor/unit and/or counseling patient: Coding Level of Care Code 73907 Subseq Hosp Care Lvl 3 Diagnoses Pneumonia J18.9 Septicemia A41.9 Elevated troponin R77.8 Atrial fibrillation I48.91 Hypertension I10 Diabetes mellitus E11.9 Acute kidney injury superimposed on CKD N17.9; N18.9 CKD (chronic kidney disease), stage III N18.30 Hyponatremia E87.1 Depression F32.A
[2022-03-06] MEDS: ROSUVASTATIN CALCIUM 20 MG TAB PO SCH (21:27)
[2022-03-06] MEDS: cefTRIAXone SODIUM 2,000 MG in DEXTROSE 5% 50 ML IV SCH (21:34)
[2022-03-07] MEDS: INSULIN ASPART PER UNIT SC SCH ×4 (07:49→20:40)
[2022-03-07] MEDS: guaiFENesin 600 MG TABCR PO SCH ×2 (08:14→20:39)
[2022-03-07] MEDS: APIXABAN 5 MG TABLET PO SCH (08:14)
[2022-03-07] MEDS: ESCITALOPRAM OXALATE 20 MG TAB PO SCH (08:15)
[2022-03-07] MEDS: ASPIRIN 81 MG ECTAB PO SCH (08:15)
[2022-03-07] MEDS: BENZONATATE 100 MG CAPSULE PO SCH ×3 (08:15→20:38)
[2022-03-07] MEDS: OMEGA-3 (PURIFIED FISH OIL) 1 GM CAP PO SCH (08:16)
[2022-03-07] MEDS: TRIAMCINOLONE ACET 0.1% CR 15 GM TUBE EXT SCH ×3 (08:16→20:39)
[2022-03-07 08:22] LABS: Hematocrit (blood only) 30.6 % (42-52); Hemoglobin 10.2 g/dL (14.0-18.0); Mean Corpuscular Hemoglobin 30.2 pg (25-34); Mean Corpuscular Hgb Conc 33.3 g/dL (32-36); Mean Corpuscular Volume 90.5 fL (80-100); Mean Platelet Volume 9.8 fL (7.4-10.4); Platelet Count 506 K/uL (130-400); RDW Coefficient of Variation 14.4 % (11.5-14.5); RDW Standard Deviation 47.5 fL (36.4-46.3); Red Blood Count 3.38 M/uL (4.7-6.1); White Blood Count 17.21 K/uL (4.8-10.8)
[2022-03-07] MEDS: INSULIN GLARGINE SOLOSTAR 100 UNITS/ML 3 ML PEN SC SCH (08:22)
[2022-03-07 08:39] LABS: BUN Creatinine Ratio 26.4 (10-20); C Reactive Protein 11.87 mg/dl (0-0.5); Calcium 8.9 mg/dl (8.5-10.1); Creatinine Clr Calc Pharmacy 42.1 ml/min; Est GFR (African American) 41.4 ml/min; Est GFR (Non-African American) 35.7 ml/min; Potassium 5.1 mmol/L (3.5-5.1)
[2022-03-07] MEDS ORDERED: PATIROMER CALCIUM SORBITEX 8.4 GM PACK PO ONE (09:48)
[2022-03-07] MEDS ORDERED: amLODIPine BESYLATE 5 MG TAB PO ONE (14:53)
[2022-03-07] MEDS: cefTRIAXone SODIUM 2,000 MG in DEXTROSE 5% 50 ML IV SCH (20:37)
[2022-03-07] MEDS: ROSUVASTATIN CALCIUM 20 MG TAB PO SCH (20:38)
--- NOTE | 2022-03-07 22:36 | Hospitalist Progress Note ---
Date of Service March 07, 2022 Assessment & Plan (1) Pneumonia: Plan: CAP. Extensive bilateral infiltrates on CT. Fortunately no empyema or parapneumonic effusion. IMPROVED CLINICALLY. Presumed 2nd to H.flu. With associated septicemia. BioFire resp panel fully negative. A 2nd COVID test was negative. Continue Ceftriaxone 2 g IV daily - day #7 today. s/p 5-day course of Azithromycin completed. WBC count SLOWLY trending down. CRP has improved (was 20, now 11). He may need 14-day course of rocephin given his +blood cultures (see below). Cont Duonebs prn. Cont Guaifenesin extended release 1200 mg p.o. twice daily. Incentive. Flutter. Cont tessalon pearles 100mg TID. (2) Septicemia: Plan: 2nd to H.flu. Source - pneumonia. Repeat blood cultures from 03/04 remain negative to date. Continue rocephin IV, day #7 today. I spoke with Bev HILTON - could switch to levofloxacin but unfortunately there is no sensitivity data to fluoroquinolones. I called and spoke with microbiology here - quinolone sensitivity was never run, and unable to add that at this time. Given his SLOW improvement, SLOW trend downward in WBCs, etc -- will simply plan a total of 14 days of once-daily rocephin. Patient disappointed as this will delay their departure from [facility] [place]. I discussed with social work need for [facility]cephin [facility] - script given to social work. If he does not need pacemaker he can d/c on 03/08 with first [facility] date of 03/09. End-date would be 03/14/22. Everything hinges on cardiology decision about pacer placement. (3) Elevated troponin: Plan: 2nd to myocardial demand ischemia in setting of #1, #2 above. No evidence of ACS. No ischemic symptoms. (4) Atrial fibrillation: Plan: He is not on AV haley agents. He continues with rates upper 20s/low 30s with some minor pauses at times and runs of NSVT on monitoring. Could have beginnings of SSS / tachy-marleny syndrome. Echo with preserved EF. I spoke with Dr Villatoro who will see him tomorrow for the severe a.fib with slow ventricular response and runs of NSVT. NPO after [place] and HOLD Eliquis 5mg BID. TSH, K, mag noted to be normal. Worst case scenario Dr Villatoro feels that permanent pacemaker insertion is needed. Patient and his were told about the above. (5) Hypertension: Plan: Holding entresto BID due to ROSIO. However, BPs high - start amlodipine 5mg daily. (6) Diabetes mellitus: Plan: Hold glimepiride and pioglitazone Cont novolog SSI Cont lantus HbA1C 7.4% (7) Acute kidney injury superimposed on CKD: Plan: Creatinine 2.50 on admission. Improved to 1.78 today. u/a - no casts, but ROSIO still likely sepsis-associated ATN Usual baseline ~1.7 (per his recollection) Cont to hold Entresto - given his preserved EF on echo not sure I would continue this (plus his CKD). Of note - no obstruction on recent CT abd/pelvis. repeat BMP am (8) CKD (chronic kidney disease), stage III: Plan: See above baseline Creatinine per patient - to his recollection - 1.7 daily BMP (9) Hyponatremia: Plan: resolved was 2nd to volume contraction from poor po intake from #1 bmp am (10) Depression: Plan: Continue escitalopram Plan: DVT proph - eliquis, but hold for possible pacer insertion PT, OT evals appreciated - cleared, does not need rehab was not present at bedside during the visit today I was finally able to speak with Mrs Anderson today by phone; # -- [phone]. She is staying in their motor home in [facility]. There is little to no cell phone bilingual medical receptionist in the park. She voiced understanding of the plan of care and potential for needing a pa cemaker because of severe bradycardia noted on tele. Admission and Anticipated Discharge Date Admission Date: March 01, 2022 Subjective tele a.fib, with ongoing slow ventricular response and still with rates dropping to upper 20s and 30s when sleeping at rest - 50s does supervisor opening and picking to 70s at peak walking did walk the hallways today he is eating well cough has improved denies any dyspnea he is anxious to go home is still with their motor home at [facility] I was able to update her today by phone care d/w Dr Villatoro today (see A/P) Review of Systems Review of Systems: gen - no fevers or chills; appetite ok; fatigue remains but able to ambulate cv - no cp, no orthopnea pulm - no sputum production GI - no abd pain, no nausea/emesis - voiding w/o difficulty neuro - no dizziness Physical Exam Physical Exam: gen - laying flat in bed without orthopnea; looks good today mouth - MMM neck - no JVD heart - irregular, bradycardic, s1 s2, no murmur lungs - left basilar rales improved; airation improved; no wheeze; no increased work of breathing abd - soft NT ND BS+ ext - no edema, pulses 2+ b/l psych - awake, alert, oriented x 3 skin - macularpapular rash left upper back again improved; no other regions with rash other than L scapular area Results & Data Results & Data ([facility]) Vital Signs (Past 12 Hours) Vital Signs Temp Pulse Resp BP Pulse Ox 03/07/22 19:28 36.7 C 59 L 18 132/50 L 96 03/07/22 15:32 36.6 C 66 16 153/77 H 95 03/07/22 11:13 36.8 C 52 L 16 147/75 H 96 Laboratory Results Laboratory Results - last 24 hr 03/07/22 03/07/22 03/07/22 07:14 07:56 07:56 WBC 17.21 H RBC 3.38 L Hgb 10.2 L Hct 30.6 L MCV 90.5 MCH 30.2 MCHC 33.3 RDW Std Deviation 47.5 H RDW Coeff of Vivian 14.4 Plt Count 506 H MPV 9.8 Sodium 138 Potassium 5.1 Chloride 107 Carbon Dioxide 23 Anion Gap 8 BUN 47 H Creatinine 1.78 H Est Cr Clr Drug Dosing 42.1 Est GFR ( Amer) 41.4 Est GFR (Non-Af Amer) 35.7 BUN/Creatinine Ratio 26.4 H Glucose 157 H POC Glucose 174 H Calcium 8.9 C-Reactive Protein 11.87 H 03/07/22 03/07/22 03/07/22 11:25 16:20 20:20 WBC RBC Hgb Hct MCV MCH MCHC RDW Std Deviation RDW Coeff of Vivian Plt Count MPV Sodium Potassium Chloride Carbon Dioxide Anion Gap BUN Creatinine Est Cr Clr Drug Dosing Est GFR ( Amer) Est GFR (Non-Af Amer) BUN/Creatinine Ratio Glucose POC Glucose 172 H 151 H 130 H Calcium C-Reactive Protein PG Care Time/CCT Total # of Minutes Spent Total Time Spent with Patient: Total time spent is greater than 50% in coordination of care (as documented) at patient's floor/unit and/or counseling patient: Coding Level of Care Code 52230 Subseq Hosp Care Lvl 3 Diagnoses Pneumonia J18.9 Septicemia A41.9 Elevated troponin R77.8 Atrial fibrillation I48.91 Hypertension I10 Diabetes mellitus E11.9 Acute kidney injury superimposed on CKD N17.9; N18.9 CKD (chronic kidney disease), stage III N18.30 Hyponatremia E87.1 Depression F32.A
[2022-03-08 07:12] LABS: Hematocrit (blood only) 30.3 % (42-52); Hemoglobin 9.7 g/dL (14.0-18.0); Mean Corpuscular Hemoglobin 29.3 pg (25-34); Mean Corpuscular Volume 91.5 fL (80-100); Mean Platelet Volume 9.6 fL (7.4-10.4); Platelet Count 445 K/uL (130-400); RDW Coefficient of Variation 14.8 % (11.5-14.5); RDW Standard Deviation 49.6 fL (36.4-46.3); Red Blood Count 3.31 M/uL (4.7-6.1)
[2022-03-08 07:27] LABS: BUN Creatinine Ratio 23.8 (10-20); Calcium 8.6 mg/dl (8.5-10.1); Creatinine Clr Calc Pharmacy 43.7 ml/min; Est GFR (African American) 45.7 ml/min; Est GFR (Non-African American) 39.5 ml/min; Potassium 5.2 mmol/L (3.5-5.1)
[2022-03-08] MEDS: INSULIN ASPART PER UNIT SC SCH ×4 (08:38→20:53)
[2022-03-08] MEDS ORDERED: PATIROMER CALCIUM SORBITEX 8.4 GM PACK PO ONE (09:02)
--- NOTE | 2022-03-08 09:03 | Cardiology Consultation ---
Date of Consultation March 08, 2022 Assessment & Plan (1) Atrial fibrillation with slow ventricular response: (2) Anticoagulant long-term use: (3) Hypertension: (4) CKD (chronic kidney disease), stage III: 1. Atrial fibrillation: He is in permanent atrial fibrillation, his heart rate is on the slow side but it sounds like it is followed closely by gas adjuster in [place] and he does not seem to have any symptoms that I can elicit related to his bradycardia. 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 He also checks his heart rate every morning before going to work and has noticed that it is somewhat slow over the last several years but he has not noticed any significant slowing recently. On telemetry his heart rate does drop below 30 transiently, but only for several beats, the lowest that I could identify was 25 bpm for 2 beats and that was while asleep. He has not had any pauses in of 3 seconds. I think this is acceptable, I think a pacemaker would be optional but in the absence of symptoms I would recommend not doing it but to continue follow-up in [place]. 2. Anticoagulation: He is on Eliquis, he is on the correct dose based on his age and weight (his kidney function is not quite normal but for now 5 mg twice a day would be correct). 3. Hypertension: He does have hypertension which is predominantly systolic hypertension. This in part may be due to the slow heart rate and probably some noncompliance is arterial system. I would not try to normalize his blood pressure as that would probably lower his mean pressure and cause symptoms. I would not use AV haley blocking medications for blood pressure control and he is on none. 4. Chronic kidney disease: He does have chronic kidney disease which appears relatively stable currently. It is possible that this is in part related to the bradycardia with possible cardiac output reduction but I do not think it justifies a pacemaker and that would be hard to test. History of Present Illness Reason for Consultation: AF with slow ventricular response Requesting Physician: Dr. Ponce Attending Physician: Kath Pack MD History of Present Illness This is a 76-year-old male with a history of diabetes mellitus, chronic kidney disease, hypertension, hyperlipidemia and permanent atrial fibrillation. He was admitted for treatment of pneumonia which occurred on a trip from [place] to visit his son in [place]. While here in the hospital it was observed that his heart rate was quite slow on no AV haley blocking medications. He takes Eliquis as an anticoagulant and is doing well on it without side effects or bleeding. I discussed cardiac symptoms with him in detail. He has never really had lightheadedness or dizziness, he does not think he has exertional symptoms although notes that he is less active than he was years ago but he attributes this to age. 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 He also walks at other times it does not see no difficulty doing it. He keeps himself physically active otherwise without difficulty. He has a gas adjuster and is followed closely due to his driving license requirements, including stress testing which has been done as recently as this spring and apparently was not remarkable. He is due for another evaluation April of this year in [place]. He has never had presyncope or syncope. Allergies Allergy/AdvReac Type Severity Reaction Status Date / Time pollen extracts Allergy Intermediate ITCHY Verified 03/01/22 21:40 EYES, SNEEZING, CONGESTION Home Medications Medication Instructions Recorded Confirmed Type apixaban 5 mg tablet (Eliquis) 5 mg PO BID 03/01/22 03/01/22 History apple cider vinegar 500 mg tablet 500 mg PO DAILY 03/01/22 03/01/22 History aspirin 81 mg tablet,delayed 81 mg PO DAILY 03/01/22 03/01/22 History release escitalopram oxalate 20 mg tablet 20 mg PO DAILY 03/01/22 03/01/22 History glimepiride 4 mg tablet 4 mg PO BID 03/01/22 03/01/22 History omega 9-hux-soi-fish oil 1,000 mg 1 cap PO DAILY 03/01/22 03/01/22 History (120 mg-180 mg) capsule (Fish Oil) pioglitazone 30 mg tablet 30 mg PO DAILY 03/01/22 03/01/22 History rosuvastatin 20 mg tablet 20 mg PO HS 03/01/22 03/01/22 History sacubitril 24 mg-valsartan 26 mg 1 tab PO BID 03/01/22 03/01/22 History tablet (Entresto) ceftriaxone 2 gram solution for 2 g IV DAILY 6 Days #6 ea 03/07/22 Rx injection Patient History Medical History Anemia of chronic disease Atrial fibrillation CKD (chronic kidney disease), stage III Depression Diabetes mellitus Hypertension Social History Smoking Status: Never smoker Hx Alcohol Use: Yes Hx Substance Use: No Preferred Language: Turkish Communication Ability: Effective Prepleater Required: No Beliefs That Will Affect Care: None marital status: Current Living Situation: Spouse How many Children do You have: 7 Feels Safe at Home: Yes Assistive Devices: None Review of Systems Review of Systems: All systems reviewed & are unremarkable except as noted in HPI & below Physical Exam Physical Exam: Constitutional: Alert, cooperative and in no distress. HEENT: Unremarkable Neck: No jugular venous distention, carotid pulses are irregular but otherwise normal and equal bilaterally without bruits. Pulmonary: Clear to auscultation bilaterally. Cardiac: Irregular slow rhythm with no murmur, gallop or rub. Abdomen: Soft, nontender with normal bowel sounds. Extremities: No edema. Distal pulses intact. Neurologic: No focal findings. Gait was not tested. Skin: No rash, ecchymoses or petechiae. Results & Data ([facility]) Vital Signs (Past 12 Hours) Vital Signs Temp Pulse Pulse Resp BP Pulse Ox 03/08/22 07:05 36.7 C 59 L 18 141/82 H 95 03/08/22 05:08 36.8 C 85 16 146/83 H 92 03/08/22 03:28 36.8 C 62 16 135/82 96 03/07/22 23:14 36.8 C 65 18 155/78 H 93 03/07/22 23:00 60 Laboratory Results Cardiac Enzymes 03/01/22 03/02/22 03/03/22 Range/Units 19:48 07:40 07:38 WBC 21.40 H 21.66 H 23.71 H (4.8-10.8) K/uL 03/04/22 03/05/22 03/06/22 Range/Units 06:20 03:30 06:26 WBC 24.39 H 19.46 H 18.43 H (4.8-10.8) K/uL 03/07/22 03/08/22 Range/Units 07:56 06:47 WBC 17.21 H 16.30 H (4.8-10.8) K/uL CBC 03/08/22 Range/Units 06:47 WBC 16.30 H (4.8-10.8) K/uL RBC 3.31 L (4.7-6.1) M/uL Hgb 9.7 L (14.0-18.0) g/dL Hct 30.3 L (42-52) % Plt Count 445 H (130-400) K/uL Comprehensive Metabolic Panel 03/08/22 Range/Units 06:47 Sodium 136 (136-145) mmol/L Potassium 5.2 H (3.5-5.1) mmol/L Chloride 107 (98-107) mmol/L Carbon Dioxide 23 (21-32) mmol/L BUN 39 H (6-23) mg/dl Creatinine 1.64 H (0.6-1.4) mg/dl Glucose 172 H (70-99(Fasting)) mg/dl Calcium 8.6 (8.5-10.1) mg/dl Intake and Output 03/07/22 03/08/22 03/08/22 22:59 06:59 14:59 Intake Total 70 / 790 240 / 790 Output Total Balance 69 / 789 240 / 789 Intake: IV 70 / 70 cefTRIAXone SODIUM 2,000 mg In 70 / 70 Dextrose 5% 50 ml @ 100 mls/hr IV Q24H [facility] Rx#:[id number] Oral 240 / 720 Output: # Bowel Movements Other: Other Intake Source sips # Unmeasured Voids 3 Weight 95 kg Weight Measurement Method Built in [facility] Diagnostic Findings Telemetry: Atrial fibrillation with overall slow heart rate, averaging 40 to 50 bpm, slower at night at times. Occasional readings of less than 30 bpm, however for only 1 or 2 beats and no prolonged pauses (nothing that I see in excess of 3 seconds). PG Care Time/CCT Total # of Minutes Spent Total Time Spent with Patient: Total time spent is greater than 50% in coordination of care (as documented) at patient's floor/unit and/or counseling patient: Coding Level of Care Code 69722 Initial Inpt Care Lvl 3 Diagnoses Atrial fibrillation with slow ventricular response I48.91 Hypertension I10 CKD (chronic kidney disease), stage III N18.30 Anticoagulant long-term use Z79.01
[2022-03-08] MEDS: TRIAMCINOLONE ACET 0.1% CR 15 GM TUBE EXT SCH ×3 (09:07→19:37)
[2022-03-08] MEDS: BENZONATATE 100 MG CAPSULE PO SCH ×3 (09:07→19:38)
[2022-03-08] MEDS: guaiFENesin 600 MG TABCR PO SCH ×2 (09:07→19:38)
[2022-03-08] MEDS: ESCITALOPRAM OXALATE 20 MG TAB PO SCH (09:08)
[2022-03-08] MEDS: OMEGA-3 (PURIFIED FISH OIL) 1 GM CAP PO SCH (09:08)
[2022-03-08] MEDS: ASPIRIN 81 MG ECTAB PO SCH (09:08)
[2022-03-08] MEDS: amLODIPine BESYLATE 5 MG TAB PO SCH (09:09)
[2022-03-08] MEDS: INSULIN GLARGINE SOLOSTAR 100 UNITS/ML 3 ML PEN SC SCH (10:02)
--- NOTE | 2022-03-08 15:29 | Hospitalist Progress Note ---
Date of Service March 08, 2022 Assessment & Plan (1) Pneumonia: Plan: CAP. Extensive bilateral infiltrates on CT. Fortunately no empyema or parapneumonic effusion. IMPROVED CLINICALLY. Presumed 2nd to H.flu. With associated Haemophilus influenzae septicemia. BioFire resp panel fully negative. A 2nd COVID test was negative. Continue Ceftriaxone 2 g IV daily x14-day course for pneumonia and bacteremia given slow improvements as per ID recommendation-last day of treatment 03/14/2022 s/p 5-day course of Azithromycin completed. WBC count continues to be slowly trending down-now at 16 CRP has improved (was 20, now 11). Cont Duonebs prn. Cont Guaifenesin extended release 1200 mg p.o. twice daily. Continue incentive spirometry and flutter valve Cont tessalon pearles 100mg TID. (2) Septicemia: Plan: 2nd to H.flu. Source - pneumonia. Repeat blood cultures from 03/04 remain negative to date. Continue rocephin IV x14-day course-last day of treatment 03/14/2022 Previous hospitalist spoke with Bev HILTON - could switch to levofloxacin but unfortunately there is no sensitivity data to fluoroquinolones. Previous hospitalist called and spoke with microbiology here - quinolone sensitivity was never run, and unable to add that at this time. Given his SLOW improvement, SLOW trend downward in WBCs, etc -- will simply plan a total of 14 days of once-daily rocephin. (3) Anemia of chronic disease: Plan: Hemoglobin low at 9.7-10 throughout his stay. He reports a history of anemia. Reports having colonoscopy a few years ago and was told he never needed another one. He has never had an EGD. No bleeding or blood in the stool that he knows of. Likely anemia of chronic disease. Is normocytic Check iron studies, fecal occult stool, B12, folate in the morning TSH normal (4) Acute kidney injury superimposed on CKD: Plan: Creatinine 2.50 on admission. Improved to 1.6 now which he reports is around his baseline Of note - no obstruction on recent CT abd/pelvis. u/a - no casts, but ROSIO still likely sepsis-associated ATN -Cont to hold Entresto - given his preserved EF on echo not sure I would continue this (plus his CKD). -Follow BMP (5) Atrial fibrillation: Plan: He is not on AV haley agents. He continues with rates upper 20s/low 30s overnight that are asymptomatic, but rates in the 40s to 60s during the day and improved with activity Echo with preserved EF. TSH, K, mag noted to be normal. Appreciate EP cardiology consultation-no indication for asymptomatic pacemaker placement at this time-no syncope, no pauses greater than 3 seconds, etc. Okay to restart Eliquis (6) Hypertension: Plan: Holding entresto BID due to ROSIO. However, BPs high - started amlodipine 5mg daily. (7) Elevated troponin: Plan: 2nd to myocardial demand ischemia in setting of septicemia No evidence of ACS. No ischemic symptoms. (8) Diabetes mellitus: Plan: Continue to hold glimepiride and pioglitazone Cont novolog SSI Cont lantus HbA1C 7.4% (9) CKD (chronic kidney disease), stage III: Plan: See above baseline Creatinine per patient - to his recollection - 1.7 daily BMP (10) Hyponatremia: Plan: resolved was 2nd to volume contraction from poor po intake from septicemia (11) Depression: Plan: No acute issues Continue escitalopram Plan: DVT proph - eliquis PT, OT evals appreciated - cleared, does not need rehab It is difficult to reach Mrs Anderson by phone; # -- [phone]. She is staying in their motor home in [facility]. There is little to no cell phone rn documentation in the park. Plan for discharge to home tomorrow with Rocephin and [facility] for 6 more days after discharge-we will place ultrasound-guided peripheral IV Admission and Anticipated Discharge Date Admission Date: March 01, 2022 Subjective Patient reports feeling much better. Still mild cough but not really productive anymore. No chest pains or shortness of breath. He is ambulating around the room independently and feels strong. Telemetry with atrial fibrillation with rates in the 50s to 60s while awake and 30s and a brief drop to the 20s overnight. I discussed his care with cardiology. Patient reports his baseline creatinine is around 1.6-1.7. Review of Systems Review of Systems: All systems reviewed & are unremarkable except as noted in HPI & below Physical Exam Constitutional: WD/WN, vitals as above Eyes: + anicteric sclerae Neck: trachea midline, no thyromegaly Respiratory: normal respiratory effort and + cough; not tachypneic Auscultation: + crackles (Left base) and + rhonchi (Right lower lung field); no wheezes Cardiovascular: Rate/Rhythm: + bradycardic and + irregularly irregular Heart Sounds: no murmur Extremities: no edema Chest (Breasts): Chest: normal inspection of chest Gastrointestinal (Abdomen): normal bowel sounds, soft, nontender, no hepatosplenomegaly Musculoskeletal: Extremities: extremities normal to inspection; no cyanosis and no clubbing Skin: no rashes, warm and dry Neurologic: moves all extremities and awake; no focal motor deficits Psychiatric: A+Ox3, euthymic affect Lymphatic: no lymphedema Results & Data Results & Data ([facility]) Vital Signs (Past 12 Hours) Vital Signs Temp Pulse Resp BP Pulse Ox 03/08/22 11:27 36.6 C 64 20 138/81 03/08/22 07:05 36.7 C 59 L 18 141/82 H 95 03/08/22 05:08 36.8 C 85 16 146/83 H 92 Laboratory Results 03/08/22 03/08/22 03/08/22 Range/Units 11:46 07:11 06:47 WBC (4.8-10.8) K/uL RBC (4.7-6.1) M/uL Hgb (14.0-18.0) g/dL Hct (42-52) % MCV (80-100) fL MCH (25-34) pg MCHC (32-36) g/dL RDW Std Deviation (36.4-46.3) fL RDW Coeff of Vivian (11.5-14.5) % Plt Count (130-400) K/uL MPV (7.4-10.4) fL Sodium 136 (136-145) mmol/L Potassium 5.2 H (3.5-5.1) mmol/L Chloride 107 (98-107) mmol/L Carbon Dioxide 23 (21-32) mmol/L Anion Gap 6 (3-11) BUN 39 H (6-23) mg/dl Creatinine 1.64 H (0.6-1.4) mg/dl Est Cr Clr Drug Dosing 43.7 ml/min Est GFR ( Amer) 45.7 ml/min Est GFR (Non-Af Amer) 39.5 ml/min BUN/Creatinine Ratio 23.8 H (10-20) Glucose 172 H (70-99(Fasting)) mg/dl POC Glucose 239 H 166 H (70-99) mg/dl Calcium 8.6 (8.5-10.1) mg/dl A. phagocytophilum DNA (Negative) 03/08/22 03/07/22 03/01/22 Range/Units 06:47 20:20 19:48 WBC 16.30 H (4.8-10.8) K/uL RBC 3.31 L (4.7-6.1) M/uL Hgb 9.7 L (14.0-18.0) g/dL Hct 30.3 L (42-52) % MCV 91.5 (80-100) fL MCH 29.3 (25-34) pg MCHC 32.0 (32-36) g/dL RDW Std Deviation 49.6 H (36.4-46.3) fL RDW Coeff of Vivian 14.8 H (11.5-14.5) % Plt Count 445 H (130-400) K/uL MPV 9.6 (7.4-10.4) fL Sodium (136-145) mmol/L Potassium (3.5-5.1) mmol/L Chloride (98-107) mmol/L Carbon Dioxide (21-32) mmol/L Anion Gap (3-11) BUN (6-23) mg/dl Creatinine (0.6-1.4) mg/dl Est Cr Clr Drug Dosing ml/min Est GFR ( Amer) ml/min Est GFR (Non-Af Amer) ml/min BUN/Creatinine Ratio (10-20) Glucose (70-99(Fasting)) mg/dl POC Glucose 130 H (70-99) mg/dl Calcium (8.5-10.1) mg/dl A. phagocytophilum DNA Negative (Negative) PG Care Time/CCT Total # of Minutes Spent Total Time Spent with Patient: Total time spent is greater than 50% in coordination of care (as documented) at patient's floor/unit and/or counseling patient: Coding Level of Care Code 62987 Subseq Hosp Care Lvl 3 Diagnoses Pneumonia J18.9 Septicemia A41.9 Elevated troponin R77.8 Atrial fibrillation I48.91 Hypertension I10 Diabetes mellitus E11.9 Acute kidney injury superimposed on CKD N17.9; N18.9 CKD (chronic kidney disease), stage III N18.30 Hyponatremia E87.1 Depression F32.A Anemia of chronic disease D63.8
[2022-03-08] MEDS: cefTRIAXone SODIUM 2,000 MG in DEXTROSE 5% 50 ML IV SCH (19:29)
[2022-03-08] MEDS: ROSUVASTATIN CALCIUM 20 MG TAB PO SCH (19:38)
[2022-03-08] MEDS: APIXABAN 5 MG TABLET PO SCH (19:39)
[2022-03-09 07:13] LABS: Hematocrit (blood only) 29.1 % (42-52); Hemoglobin 9.6 g/dL (14.0-18.0); Mean Corpuscular Hemoglobin 30.5 pg (25-34); Mean Corpuscular Volume 92.4 fL (80-100); Mean Platelet Volume 9.5 fL (7.4-10.4); Platelet Count 425 K/uL (130-400); RDW Coefficient of Variation 14.5 % (11.5-14.5); RDW Standard Deviation 49.2 fL (36.4-46.3); Red Blood Count 3.15 M/uL (4.7-6.1); White Blood Count 14.59 K/uL (4.8-10.8)
[2022-03-09 07:46] LABS: Basophils # (auto) 0.06 K/uL (0-0.2); Basophils % (auto) 0.4 %; Eosinophils # (auto) 0.35 K/uL (0-0.5); Eosinophils % (auto) 2.4 %; Immature Granulocytes % (auto) 7.5 %; Lymphocytes # (auto) 0.63 K/uL (1.2-3.4); Lymphocytes % (auto) 4.3 %; Monocytes % (auto) 10.3 %; Neutrophils # (auto) 10.95 K/uL (1.4-6.5); Neutrophils % (auto) 75.1 %
[2022-03-09 07:54] LABS: Albumin Globulin Ratio 0.8 (0.9-2); Albumin Level 2.6 gm/dl (3.4-5.0); BUN Creatinine Ratio 22.2 (10-20); Bilirubin,Total 0.3 mg/dl (0.2-1.0); C Reactive Protein 4.38 mg/dl (0-0.5); Calcium 8.4 mg/dl (8.5-10.1); Creatinine Clr Calc Pharmacy 45.4 ml/min; Est GFR (African American) 47.8 ml/min; Est GFR (Non-African American) 41.3 ml/min; Globulin 3.2 gm/dl (2.5-4.0); Magnesium 1.7 mg/dl (1.7-2.4); Total Protein 5.8 gm/dl (6.0-8.3)
[2022-03-09 07:58] LABS: Ferritin 161.4 ng/ml (8-388)
[2022-03-09 08:04] LABS: Folate (Folic Acid) 13.79 ng/ml (>5.38)
[2022-03-09] MEDS: INSULIN ASPART PER UNIT SC SCH ×2 (08:28→11:57)
[2022-03-09] MEDS: INSULIN GLARGINE SOLOSTAR 100 UNITS/ML 3 ML PEN SC SCH (08:29)
[2022-03-09] MEDS: ASPIRIN 81 MG ECTAB PO SCH (08:32)
[2022-03-09] MEDS: APIXABAN 5 MG TABLET PO SCH (08:32)
[2022-03-09] MEDS: guaiFENesin 600 MG TABCR PO SCH (08:32)
[2022-03-09] MEDS: BENZONATATE 100 MG CAPSULE PO SCH ×2 (08:32→13:17)
[2022-03-09] MEDS: ESCITALOPRAM OXALATE 20 MG TAB PO SCH (08:33)
[2022-03-09] MEDS: TRIAMCINOLONE ACET 0.1% CR 15 GM TUBE EXT SCH ×2 (08:33→13:17)
[2022-03-09] MEDS: OMEGA-3 (PURIFIED FISH OIL) 1 GM CAP PO SCH (08:33)
[2022-03-09] MEDS: amLODIPine BESYLATE 5 MG TAB PO SCH (08:33)
[2022-03-09] MEDS ORDERED: cefTRIAXone SODIUM 2,000 MG in DEXTROSE 5% 50 ML IV SCH (13:00)
--- NOTE | 2022-03-09 13:47 | Discharge Summary ---
Date of Service March 09, 2022 Admission HPI Per Admitting Provider Chief Complaint: The patient presents to the emergency department with complaint of 2 weeks of dry cough, shortness of breath, fatigue, facial pressure and today developed a temperature of 100.8 The patient is a 76-year-old male with a past medical history including atrial fibrillation, diabetes mellitus, hyperlipidemia, hypertension and depression. He presently is camping, denies any tick or other insect bites, presents with the symptoms as noted above. Work-up in the emergency department includes the following abnormal laboratories: WBC 21.40, hemoglobin 10.7, hematocrit 31.0, sodium 129, creatinine 2.50, BUN 52, glucose 233, highly sensitive troponin initially 47.7 and follow-up 44.7. Chest x-ray suggestive of left lower lobe pneumonia. Bio fire testing is negative, Lyme test is negative, anaplasmosis smear is negative with antibody testing pending Principal Diagnosis Septicemia, secondary to H. influenzae, Pneumonia, ROSIO, hyperkalemia, Atrial fibrillation with slow ventricular response/bradycardia Discharge Exam Constitutional WD/WN, vitals as above Eyes + anicteric sclerae Neck trachea midline, no thyromegaly Respiratory normal respiratory effort; no cough and not tachypneic Auscultation: + crackles (Left base) and + rhonchi (Right lower lung field); no wheezes Cardiovascular Rate/Rhythm: + bradycardic and + irregularly irregular Heart Sounds: no murmur Extremities: no edema Chest (Breasts) Chest: normal inspection of chest Gastrointestinal (Abdomen) normal bowel sounds, soft, nontender, no hepatosplenomegaly Musculoskeletal Extremities: extremities normal to inspection; no cyanosis and no clubbing Skin no rashes, warm and dry Neurologic moves all extremities and awake; no focal motor deficits Psychiatric A+Ox3, euthymic affect Lymphatic no lymphedema Discharge Data Allergies Allergy/AdvReac Type Severity Reaction Status Date / Time pollen extracts Allergy Intermediate ITCHY Verified 03/01/22 21:40 EYES, SNEEZING, CONGESTION Consultations 03/01/22 21:35 ED Decision to Admit Stat 03/02/22 02:02 Consult Cardiology Routine 03/06/22 16:14 Consult Cardiology Routine Ordered Studies 03/04/22 11:20 CT abd pelvis wo con Urgent CT chest diagnostic wo con Urgent CT OF THE CHEST WITHOUT IV CONTRAST CLINICAL HISTORY: Left lower lobe pneumonia, persistent leukocytosis; ro empyema COMPARISON STUDY: Chest radiograph March 03, 2022. CT DOSE: 1893.19 mGy.cm TECHNIQUE: Axial images of the chest were obtained without IV contrast. Images were reviewed in the axial, sagittal, and coronal planes. IV contrast was not administered for this examination. Automated exposure control was utilized for the study. A dose lowering technique was utilized adhering to the principles of ALARA. FINDINGS: No enlarged axillary or mediastinal lymph nodes are noted. Several mildly enlarged left hilar nodes are noted. Index left hilar node on image 154 of 326 measures 1.9 x 1.5 cm. Mild cardiomegaly is noted. There is extensive coronary artery calcification. No pericardial effusion is present. There is extensive left lower lobe consolidation. Moderate alveolar opacities within the left upper and right lower lobes are noted. There are mild airspace opacities within the right upper lobe. No central obstructing mass is present. No pleural effusion is present. No cavitation is noted. Mild emphysema within the upper lobes is noted. Abdomen and pelvis CT will be reported separately. IMPRESSION: 1. Extensive left lower lobe consolidation. Moderate alveolar opacities within the left upper and right lower lobes with mild airspace opacities within the right upper lobe. The findings suggest multifocal pneumonia. No pleural effusion. No cavitation. No central obstructing mass. A follow-up chest CT in 3 months to ensure resolution is recommended. 2. Several mildly enlarged left hilar lymph nodes. These are likely reactive but should be assessed on follow-up CT. 3. Mild cardiomegaly. Extensive coronary artery calcification. ABDOMEN AND PELVIS CT WITHOUT CONTRAST HISTORY: Acute renal failure and a patient with history of kidney stones acute renal failure; h/o stones; r/o obstruc stone TECHNIQUE: Multiaxial CT images of the abdomen and pelvis were performed without contrast. A dose lowering technique was utilized adhering to the principles of ALARA. COMPARISON STUDY: Chest CT of same day FINDINGS: Multifocal left greater then right bibasilar airspace opacities. No pneumatosis or pneumoperitoneum. Decreased attenuation of the cardiac blood pool suggestive of anemia. The heart is upper limits of normal in size with coronary artery calcifications. The unenhanced spleen, mildly atrophic pancreas, mildly contracted gallbladder and adrenal glands are unremarkable. The unenhanced liver is within normal limits. Cortical thinning of the kidneys. Bilateral nonspecific perinephric stranding. 2.2 cm cyst within the inferior pole right kidney. No renal or ureteral calculi or hydronephrosis. The prostate is upper limits of normal in size. Unremarkable urinary bladder. Small fat filled right inguinal hernia. Atherosclerosis of the aorta. Ectasia of the infrarenal abdominal aorta measures 2.5 x 2.4 cm. There is no lymphadenopathy identified. Tiny hiatal hernia. There is no bowel obstruction or bowel wall thickening. Colonic diverticulosis with moderate fecal retention. Normal appendix. Tiny fat filled periumbilical hernia. Degenerative changes of the spine, pelvis and hips. No acute fracture. IMPRESSION: 1. Left greater than right bibasilar airspace opacities are suggestive of multifocal pneumonia. 2. Nonspecific bilateral perinephric edema. No renal or ureteral calculi or hydronephrosis. 3. No bowel obstruction or bowel wall thickening. Normal appendix. 4. Colonic diverticulosis. 5. Additional findings as above. ECHO- LVEF 55-60%, no WMAs, mild MR Hospital Course (1) Pneumonia: CAP. Extensive bilateral infiltrates on CT. Fortunately no empyema or parapneumonic effusion. Much IMPROVED CLINICALLY. Presumed 2nd to H.flu with associated Haemophilus influenzae septicemia. BioFire resp panel fully negative. A 2nd COVID test was negative. WBC count continues to be slowly trending down-now at 14 CRP has improved (was 20, now 4). Continue Ceftriaxone 2 g IV daily x14-day course for pneumonia and bacteremia given slow improvements as per ID recommendation-last day of treatment 03/14/2022 s/p 5-day course of Azithromycin completed. received Duonebs prn, Guaifenesin extended release 1200 mg p.o. twice daily. Continue incentive spirometry and flutter valve Cont tessalon pearles 100mg TID prn on discharge (2) Septicemia: Septicemia due to H influenzae was POA 2nd to H.flu. Source - pneumonia. Repeat blood cultures from 03/04 remain negative to date. Continue rocephin IV x14-day course-last day of treatment 03/14/2022 Previous hospitalist spoke with [facility] - could switch to levofloxacin but unfortunately there is no sensitivity data to fluoroquinolones. Previous hospitalist called and spoke with microbiology here - quinolone sensitivity was never run, and unable to add that at this time. Given his SLOW improvement, SLOW trend downward in WBCs, etc -- will simply plan a total of 14 days of once-daily rocephin. (3) Anemia of chronic disease: Hemoglobin low at 9.7-10 throughout his stay. He reports a history of anemia. Reports having colonoscopy a few years ago and was told he never needed another one. He has never had an EGD. No bleeding or blood in the stool that he knows of. Is normocytic iron studies, fecal occult stool, B12, folate all normal TSH normal Likely anemia of chronic disease. f/u as outpt (4) Acute kidney injury superimposed on CKD: Creatinine 2.50 on admission. Improved to 1.5 now which he reports is around his baseline Of note - no obstruction on recent CT abd/pelvis. u/a - no casts, but ROSIO still likely sepsis-associated ATN -Cont to hold Entresto - given his preserved EF on echo not sure I would continue this (plus his CKD). ALso with hyperkalemia treated with Patiromer x 2 doses-WOULD NOT RESUME Entresto until returns home to [place] and is under close supervision of his physician with repeat BMP -Follow CMP on 03/14/22 at medical treatment unit (5) Atrial fibrillation: He is not on AV haley agents. He continues with rates upper 20s/low 30s overnight that are asymptomatic, but rates in the 40s to 60s during the day and improved with activity Echo with preserved EF. TSH, K, mag noted to be normal. Appreciate EP cardiology consultation-no indication for asymptomatic pacemaker placement at this time-no syncope, no pauses greater than 3 seconds, etc. continue Eliquis (6) Hypertension: Holding entresto BID due to ROSIO. However, BPs high - started amlodipine 5mg daily. remain off Entresto which he thinks he was put on after having an abnormal Nuc Med scan in 08/2021 (7) Elevated troponin: 2nd to myocardial demand ischemia in setting of septicemia No evidence of ACS. No ischemic symptoms. (8) Diabetes mellitus: held glimepiride and pioglitazone while inpatient and treated with basal/bolus insulin HbA1C 7.4% Given h/o presumably of CHF (given he was on Entresto), recommend stopping pioglitazone as outpt-advised f/u with PCP (9) CKD (chronic kidney disease), stage III: See above baseline Creatinine per patient - to his recollection -1.5-1.7 follow as outpt (10) Hyponatremia: resolved was 2nd to volume contraction from poor po intake from septicemia (11) Depression: No acute issues Continue escitalopram DVT proph - elidionnais PT, OT jossue appreciated - cleared, does not need rehab Dispo-discharge to home today with plans for Rocephin at [facility] for 5 more days after discharge- placed ultrasound-guided peripheral IV on 03/08 Total Time Total Time Spent Total Time Spent (In Minutes): 35 min Discharge Plan Discharge Items Patient Disposition: Home - Self-Care Reason For Visit: PNEUMONIA, ELEVATED TROPONIN Discharge Diagnosis: Haemophilus influenzae pneumonia and Septicemia, Bradycardia, Acute kidney injury, Hyperkalemia Condition on Discharge: Good Activity: As commented below Lifting: Gradually increase as tolerated Bathing: No limitations Bathing Comment: Keep IV site dry Exercise/Sports: Gradually increase as tolerated Non-emergency contact: Primary Care Provider and [facility] Call non-emergency contact if: you have any medication questions, your symptoms worsen and you have a fever Follow-up/Referrals: PCP,NO [Primary Care Provider] - (Follow up with your PCP within 1-2 weeks.) Diet: Carb Consistent or DM2 and Heart Healthy Addtl Attending Provider Instructions: Please finish out the IV antibiotics once daily with the last day of treatment being 03/14/22. You should have labs drawn on 03/14/22 to include a CBC and CMP. The nurse at the [facility] can draw those labs. Please have a repeat chest xray in 4-6 weeks to ensure your pneumonia is completely resolved. You should remain OFF the Entresto until after seen by your primary care doctor or [facility] as your potassium levels have been high and your kidney function was decreased. Your kidney function did improve back to your baseline, and your potassium levels did improve back to the high end of normal. Please eat a low potassium diet. You should also talk to your PCP and/or [facility] about stopping your pioglitazone as this can worsen heart issues. You had a low heart rate here (at times your heart rate was in the 20s-30s) and were seen by the [facility] did not think you needed a pacemaker. Please follow up with your [facility] in [place] after you return. Because your Entresto was stopped, your blood pressures became more elevated. You were started on amlodipine instead for your blood pressure. Pending Studies at Discharge: No Stand-Alone Forms: My [facility], Smoking Cessation Medications and DC Order Prescriptions: New ceftriaxone 2 gram recon soln 2 g IV DAILY 6 Days Qty: 6 RF: 0 amlodipine [Norvasc] 5 mg Tablet 5 mg PO QAM Qty: 30 RF: 0 triamcinolone acetonide 0.1 % Cream 1 applic EXT BID PRN (Reason: rash or itching) Qty: 15 RF: 0 benzonatate 100 mg Capsule 100 mg PO TID PRN (Reason: cough) Qty: 15 RF: 0 Continued aspirin 81 mg Tablet,Delayed Release (Dr/Ec) 81 mg PO DAILY RF: 0 glimepiride 4 mg tablet 4 mg PO BID RF: 0 pioglitazone 30 mg tablet 30 mg PO DAILY RF: 0 escitalopram oxalate 20 mg tablet 20 mg PO DAILY RF: 0 apple cider vinegar 500 mg Tablet 500 mg PO DAILY RF: 0 rosuvastatin 20 mg tablet 20 mg PO HS RF: 0 omega 0-buy-yel-fish oil [Fish Oil] 1,000 mg (120 mg-180 mg) Capsule 1 cap PO DAILY RF: 0 Eliquis 5 mg Tablet 5 mg PO BID RF: 0 Discontinued Entresto 24-26 mg tablet 1 tab PO BID RF: 0 Discharge Orders: Discharge Order (Routine); Ordered 03/09/22 Ordered By: Kath Mary/Other Patient Handouts: Managing Type 2 Diabetes Admission Data Admit Date/Time: 03/01/22 23:10 Attending Provider: Kath Pack Admit Provider: Dinh Kwon Primary Care Provider: PCP,NO Other Providers: Dinh Kwon ; Danny Dejesus ; Fernando Villatoro Coding Level of Care Code D/C DAY MANAGEMENT >30 MINS Diagnoses Pneumonia J18.9 Septicemia A41.9 Anemia of chronic disease D63.8 Acute kidney injury superimposed on CKD N17.9; N18.9 Atrial fibrillation I48.91 Hypertension I10 Elevated troponin R77.8 Diabetes mellitus E11.9 CKD (chronic kidney disease), stage III N18.30 Hyponatremia E87.1 Depression F32.A
== END 2022-03-09 14:57 | disposition home or self-care (01) | DRG 871 ==
LOC: ED 18:59 → 2S 23:10 → SUATTDRO 23:10 → 2S 03-02 01:38